=== PATIENT | male | born 1975 | race Caucasian/White ===

== ENCOUNTER 2019-07-23 16:06 | Emergency (ER) | payer BC ==
[~2019-07-23] VITALS: Ht 185.4 cm; Wt 72.6 kg
[2019-07-23] MEDS ORDERED: KEFLEX500 MG PO (17:39)
[2019-07-23] MEDS ORDERED: NORCO 7.5-3251 EACH PO (17:39)
[2019-07-23] MEDS ORDERED: ONDANSETRON ODT8 MG PO (17:39)
== END 2019-07-23 17:58 | disposition home or self-care (01) ==
LOC: ED 16:06
DX: K61.1 Rectal abscess (principal); B34.9 Viral infection, unspecified
CPT/HCPCS: 46040; 85025; 99284-25; A9270; J1170; J2405; J3010; J7030

== ENCOUNTER 2022-09-29 09:34 | Inpatient (IN) | payer BC ==
[~2022-09-29] VITALS: Ht 188 cm; Wt 85.0 kg
[~2022-09-29 09:34] MED LIST: KEFLEX500 MG PO; NORCO 7.5-3251 EACH PO; ONDANSETRON ODT8 MG PO
[2022-09-29 12:00] VITALS: BP 121/70
--- NOTE | 2022-09-29 12:00 | NUR ---
Patient brought up from the ER to Med surg for a CT scan that showed "acute appendicitis without evidence of rupture." Patient has IV fluids going, pain controlled at 4/10. Patient also has antibiotics running(flagyl) once this is done we will start the next one. is in room with patient and goes by Lilibeth. Patients jeans were removed and patient is in gown. IV dressing WNL and fluids running with no complications. will be in to evaluate patient later and advise of plan.
--- NOTE | 2022-09-29 12:40 | NUR ---
Patient pain has started to increase rapidly. Patient is unable to get comfortable. Patient needed to get up to the restroom. Patient able to urinate. IV pain medication given. Pain 9/10. Patient holding RLQ. Warm pack applied to area and very helpful.
--- NOTE | 2022-09-29 13:14 | NUR ---
INTO SEE PATIENT, PATIENT RESTING IN BED. SPOKE WITH PATIENT BRANDEN WHO IS AT THE BEDSIDE. NO CASE MANAGEMENT NEEDS AT THIS TIME. PATIENT WILL DISCHARGE TO HOME WHEN STABLE.
--- NOTE | 2022-09-29 13:29 | NUR ---
Patient now has Cefepime running over 30 minutes per order. Patient has D5LR hanging and ready to go after antibiotic done. Patient now sleeping comfortably since recieving his pain medication. at bedside. Regular respirations noted.
--- NOTE | 2022-09-29 14:39 | NUR ---
Patient currently asleep on his left side. is gone and went to get some stuff for patient and get her kids.
--- NOTE | 2022-09-29 14:53 | NUR ---
Med rec completed.
--- NOTE | 2022-09-29 15:01 | NUR ---
Patient awake and would like more pain medications. See eMar for medication. Patient also given a warm pack again as he feels this is very helpful. Denies nausea.
--- NOTE | 2022-09-29 16:09 | NUR ---
PLATE MILL MILL HAND IN ROOM WITH NURSE PATIENT GETTING SURGICAL WIPE DOWN. SURGICAL PRE OP CHECK LIST DONE.
--- NOTE | 2022-09-29 16:59 | NUR ---
AROUND 1600 PATIENT'S HELPED ME WIPE HIM DOWN FOR SURGERY. PUT NEW GOWN ON AND SCDS.
[2022-09-29 17:21] VITALS: BP 128/74
--- NOTE | 2022-09-29 17:21 | NUR ---
was just in to visit patient and advised patient he will get the team together and get ready for surgery.
--- NOTE | 2022-09-29 17:24 | NUR ---
Patient UA sample sent to lab by ALBERTO wynne.
--- NOTE | 2022-09-29 18:15 | NUR ---
Patient just left for surgery.
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
--- NOTE | 2022-09-29 20:39 | NUR ---
09/29/222038 Andino,Irene Santos 2021: PATIENT ARRIVED WTIH ORAL AIRWAY IN PLACE. ASLEEP. 2029: PATIENT SLEEPING. UNABLE TO AROUSE WITH VOICE AND LIGHT TOUCH. PATIENT EXCHANGING AIR ADEQUATELY WITH ORAL AIRWAY IN PLACE. 2035: PATIENT CONTINUES TO SLEEP. DOES NOT WAKE TO VOICE AND TOUCH. ORAL AIRWAY REMAINS IN PLACE.
[2022-09-29 21:05] VITALS: BP 113/70
[2022-09-29 22:12] VITALS: BP 109/62
[2022-09-29 23:04] VITALS: BP 103/61
[2022-09-30] VITALS (7 sets, daily range): BP systolic 101–122; BP diastolic 58–77
--- NOTE | 2022-09-30 06:24 | NUR ---
PT RESTED SOME DURING THE SHIFT. PT RECEIEVED TORADOL ONCE DURING THE SHIFT. PT DENIED ANY N/V. IVF INFUSING PER ORDER. PT VOIDED. PT TOLERATING CLEAR LIQUIDS. VSS. SAFETY PRECAUTIONS MAINTAINED. CALL LIGHT WITHIN REACH. WILL CONTINUE TO MONITOR.
--- NOTE | 2022-09-30 07:15 | NUR ---
Recieved report from records officer nurse. Patient was currently just given pain medication. Patient given fresh water. Call light within reach. Patient on clears currently. Denies any other needs at this time.
--- NOTE | 2022-09-30 08:09 | NUR ---
PATIENT RESTING IN BED, ANTIBIOTICS STARTED AND MORNING MEDICATIONS GIVEN. PATIENT HAS CLEAR LIQUID BREAKFAST AT BEDSIDE THAT HE IS WORKING ON. PAIN LEVEL IS CURRENTLY 2/10. DENIES ANY OTHER CARES AT THIS TIME. CALL LIGHT WITHIN REACH.
--- NOTE | 2022-09-30 08:38 | OR ---
[facility] [address] [place], [place] [address] Signed DATE OF OPERATION: 09/29/2022 SURGEON: Hakeem Salgado MD PREOPERATIVE DIAGNOSIS: Acute appendicitis. POSTOPERATIVE DIAGNOSIS: Acute necrotic appendicitis. PROCEDURE: Laparoscopic converted to open appendectomy. ESTIMATED BLOOD LOSS: Minimal. FINDINGS: Reji had omentum and the cecum densely adherent to the black necrotic appendix. We quickly realized this was not going to separate with our laparoscopic instruments. We therefore converted to an open appendectomy through a periumbilical incision. INDICATIONS: Reji is a 47-year-old gentleman, otherwise quite healthy and at his ideal body weight. For at least a couple of days, he had periumbilical abdominal pain and then localized to the right lower quadrant. He had significant nausea and vomiting, was quite dehydrated. He came to the emergency room for evaluation. He had localized peritonitis in his right lower quadrant. His white count was elevated at 18,000. The rest of the labs were unremarkable, except his BUN was up a little bit at 25 and his creatinine was up at 1.91. A CT scan of the abdomen and pelvis showed an inflamed thickened appendix at 1.4 cm in diameter. He had periappendiceal inflammation as well. He had received IV fluids, antibiotics and pain control in the emergency room. He was admitted to my service as a local general surgeon. I had met with Reji in his hospital room. I brought a brochure on the appendix, so he could review that when he was feeling better. We discussed the above findings. We discussed the location and function of the appendix. We discussed laparoscopic versus open appendectomy. He understands there is risk including, but not limited to bleeding, infection, scarring, change in contour of the skin, damage to bowel, appendiceal stump leak, postoperative intraabdominal abscess, incisional hernias and other unforeseen comorbidities. He is aware that we have to do open appendectomies 3% of the time. We had reviewed the expected intraop and postop course. He had expressed understanding and wished to proceed. Electronically Signed By: HAKEEM SALGADO MD 09/30/22 0838 PATIENT NAME: REJI MCFARLANE OPERATIVE REPORT DATE OF : 79 REPORT #: [id number] PHYSICIAN: HAKEEM SALGADO MD PCP: NO PRIMARY CARE PHYSICIAN REPORT IS CONFIDENTIAL AND NOT TO BE RELEASED WITHOUT AUTHORIZATION [facility] [address] [place], [place] [address] Signed DESCRIPTION OF PROCEDURE: Reji was taken into our operating room and placed in the supine position under general endotracheal tube anesthesia. He was already on preoperative antibiotics along with subcutaneous Lovenox. SCDs were in place. A Fuentes catheter was inserted with return of moderately dark, but clean urine without difficulty. He had been prepped and draped in the usual sterile fashion. We could feel the mass over the area of the appendix once he was pharmacologically paralyzed. We placed our trocar above the umbilicus through a vertical incision. We could see the mass with the omentum over this area. We placed a 5 mm suprapubic trocar. With our blunt grasper, we spent just a minute or two and we could see the significant inflammatory changes not only with the omentum, but also with the cecum and part of the proximal right colon as well. We simply could not separate that tissue whatsoever. We therefore elected to convert to open. We just extended incision down and around the umbilicus. We entered the abdomen with the help of the cautery. With the help of our nurse, we were able to quickly assess the cecum and appendix. It took just a few minutes to break that loose with our fingertips. We found his black necrotic appendix underneath the omentum. There was some fluid in that area. We went ahead and irrigated and suctioned that out. We secured the base of the appendix next to the cecum with a Pean clamp and an 0 Vicryl tie. The appendiceal stump was lightly cauterized. Fortunately, the mesoappendix was not particularly broad and we were able to come across it with one p.r.n. clamp. We secured that with an 0 Vicryl suture as well. The appendix was then passed off the field. We irrigated the area once again and suctioned out until clear. The bowel was returned to its position and omentum was placed over the bowel and the cecum. We then closed the midline fascia with interrupted #1 [id number] PDS sutures. Local anesthetic was injected in the abdominal wall. The wound had been irrigated until clear. We injected some additional local in his skin along the edge of the incision. We brought the dermis back together with interrupted 3-0 subcuticular Monocryl sutures including the 5 mm suprapubic trocar site. We then reapproximated the skin with interrupted kandy. Dry gauze and tape were then applied. His Fuentes catheter was removed without difficulty. He was weaned from his anesthesia, extubated in the OR, and taken to recovery room in stable condition. Hakeem Salgado MD ALB/MODL /[id number] Electronically Signed By: HAKEEM SALGADO MD 09/30/22 0838 PATIENT NAME: REJI MCFARLANE OPERATIVE REPORT DATE OF : 79 REPORT #: [id number] PHYSICIAN: HAKEEM SALGADO MD PCP: NO PRIMARY CARE PHYSICIAN REPORT IS CONFIDENTIAL AND NOT TO BE RELEASED WITHOUT AUTHORIZATION [address] [address] Signed cc: Patient Chart Hakeem Salgado MD Copies: HAKEEM SALGADO MD ~ Electronically Signed By: HAKEEM SALGADO MD 09/30/22 0838 PATIENT NAME: REJI MCFARLANE OPERATIVE REPORT DATE OF : 79 REPORT #: [id number] PHYSICIAN: HAKEEM SALGADO MD PCP: NO PRIMARY CARE PHYSICIAN REPORT IS CONFIDENTIAL AND NOT TO BE RELEASED WITHOUT AUTHORIZATION
--- NOTE | 2022-09-30 09:25 | NUR ---
Phone call to pharmacy. Patient has had back to back antibiotics. Called to see if this nurse could run maxipime and sodium phosphate together to help keep the medications on time as they are only 45 minutes apart but maxipime is 4 hour infusion. Per Chester in pharmacy this nurse can not run them together but advised ok to run maxipime in over 30 minutes.
--- NOTE | 2022-09-30 09:34 | NUR ---
Patient up and walking with and student nurse down and back on the med surg floor. Tolerating well, no complications. C/o just feeling sore. Pt also recently up to urinate.
--- NOTE | 2022-09-30 09:51 | NUR ---
CONNECTED WITH PT HE AMBULATED IN HALLWAY WITH SN AND FAMILY IN TOW. PT SLOW BUT STEADY USING HIS FWW. GAVE ENCOURAGEMENT WILL FOLLOW
--- NOTE | 2022-09-30 10:36 | NUR ---
IN TO TALK TO PATIENT. DR. JOSEPH ADVISED THIS NURSE HE WILL REMOVE THE DRESSING AND PATIENT CAN SHOWER TODAY. ANTIBIOTICS RUNNING. PATINET GIVEN 2 NORCO FOR PAIN TO SEE HOW HE TOLERATES TAKING ORAL PAIN MEDICATIONS.
--- NOTE | 2022-09-30 12:16 | NUR ---
Patient currently sleeping on his right side. Regular respirations noted. in room with patient.
--- NOTE | 2022-09-30 12:56 | NUR ---
Patient awake. Advised this nurse this is the first time he woke up and was not in worse pain. Patient given ice pack to apply to abdomen. Patient would like to wake up a little bit and then get in the shower. Antibiotics running.
--- NOTE | 2022-09-30 13:51 | NUR ---
Patient up and getting into shower. IV has been SL and covered and antibiotics are stopped at this time. is in room and will help patient. Towels, wash cloth, shampoo given. Patient will call using his call light when out to start antibiotics again.
--- NOTE | 2022-09-30 16:33 | NUR ---
Patient up and walked the long loop around [facility] with no complications. Steady on feet, used a walker to be safe as patient was worried as he was a little lightheaded when he first started to walk.
--- NOTE | 2022-09-30 18:20 | NUR ---
Family at bedside with patient. Vitals taken. Patient denies pain medications at this time and would like to wait until after dinner.
--- NOTE | 2022-09-30 19:20 | NUR ---
REPORT RECEIVED FROM THE DAY NURSE. PT RESTING IN BED. PT'S FAMILY AT BEDSIDE. SAFETY PRECAUTIONS MAINTAINED. CALL LIGHT WIHTIN REACH. WILL CONTINUE TO MONITOR.
[2022-10-01 04:59] VITALS: BP 123/77
--- NOTE | 2022-10-01 06:01 | NUR ---
PT RESTED WELL DURING THE SHIFT. DILAUDID GIVEN ONCE FOR PAIN, NORCO ALSO GIVEN FOR FOR. IVF INFUSING PER ORDER. IV ABX GIVEN. GOOD OUT PUT NOTED. ICE PACK APPLIED TO ABDOMEN. PT ABLE TO TOLERATE SOME PO FLUID INTAKE. SAFETY PRECAUTIONS MAINTAINED. CALL LIGHT WITHIN REACH. WILL CONTINUE TO MONITOR.
--- NOTE | 2022-10-01 07:20 | NUR ---
RECIEVED MORNING SHIFT REPORT. PT AWAKE IN BED. REPORTS WANTING TO WALK. THIS RN WALKED MS GREEN WITH PT. PT TOLERATED WELL DENIED DIZZINESS. BACK IN BED, ICE CHIPS PROVIDED, CALL LIGHT IN REACH. DENIES FURTHER NEEDS AT THIS TIME.
--- NOTE | 2022-10-01 09:15 | NUR ---
MORNING ASSESSMENT COMPLETE. PT RESTING IN BED, STATES PAIN IS TOLERABLE AT THIS TIME, WORSENS WITH MOVEMENT. PT STATES HE IS ABLE TO PASS LITTLE GAS. BOWEL TONES ACTIVE IN ALL QUADRANTS. FIRM, TENDER WITH TOUCH. MIDLINE OPEN TO AIR, STAPLE INTACT, BRUISING NOTED AROUND MIDLINE. DENIES FURTHER NEEDS. CALL LIGHT IN REACH
[2022-10-01 10:00] VITALS: BP 121/75
--- NOTE | 2022-10-01 10:14 | NUR ---
PT REFUSED BREAKFAST. STATES WILL BE HERE SOON BRINGING BROTH. DENIES ANY NEEDS. CALL LIGHT IN REACH
--- NOTE | 2022-10-01 11:51 | NUR ---
PT COMPLAINS OF NAUSEA, PRN ZOFRAN ADMINSTERED. PAIN TOLERABLE AT THIS TIME DENIES NEED FOR PAIN MEDICATION. CALL LIGHT IN REACH.
--- NOTE | 2022-10-01 13:15 | NUR ---
PT CALLED, PAIN 7/10 AND CONTIUNED TO FEEL NAUSEOUS. HE STATED THAT HE FEELS UNCOMFORTABLE. CEFEPIME IS ADMINSTERING AT THIS TIME, PT STATED HE FELT THE SAME THIS AM DURING SHIFT CHANGE WHEN MORNING DOSE OF THIS ABX WAS INFUSING. PT APPEARS TO HAVE MINOR REDDNESS UNDER LEFT CHEST, DENIES ITCHING, BUT UNABLE TO DISCRIBE THE FEELING. AYAH RN IN ROOM TO ASSESS. PHARMACY CALLED TO VERIFY, RASHI STATED TO CONTINUE TO MONITOR. PRN DILUDID AND COMPAZINE ADMINSTERED (PER EMAR). EXPLAINED TO PT AND IF FEELINGS ARE WORSE TO CALL. CALL LIGHT IN REACH. DENIES FURTHER NEEDS.
--- NOTE | 2022-10-01 14:20 | NUR ---
pt walking hallway with , states pain and nausea is still present but tolerable.
[2022-10-01 16:05] VITALS: BP 130/84
--- NOTE | 2022-10-01 16:16 | NUR ---
AFTERNOON ASSESSMENT COMPLETE. NO NEW CHANGES. PT REFUSED TO EAT LUNCH DUE TO NAUSEA. PAIN LEVEL 7/10 AND NAUSEOUS, PRN PAIN AND ANTINAUSEA MED GIVEN (PER EMAR). PT STATES ONCE NAUSEA SUBSIDES HE WILL TRY AND EAT THE BROTH HIS BROUGHT. PT WAS UP TO THE BATHROOM W/O DIFFICULTY. PT STATED HE IS PASSING GAS. CALL LIGHT IN REACH.
--- NOTE | 2022-10-01 16:46 | NUR ---
PT INFORMED THIS RN OF PT REPORTS OF "CLEAR" STOOL. IN ROOM, PT HAD INCONTINENT BROWN LIQUID BOWEL MOVEMENT. UP TO RESTROOM AND TO SHOWER. EDUCATED PT ON IMPORTANCE OF INFORMING NJURSING STAFF OF BOWEL MOVEMENTS AND FLATUS. PT AND VERBALIZED UNDERSTANDING. IV COVERED, GIVEN TOWELS AND WASH CLOTHS FOR SHOWER. TO ASSIST. PT AND DENY FURTHER NEEDS AT THIS TIME.
[2022-10-01 17:50] VITALS: BP 118/74
--- NOTE | 2022-10-01 19:23 | NUR ---
REPORT RECEIVED FROM DAY SHIFT RN. PT LYING IN BED ALERT AND ORIENTED. C/O DIZZINESS AFTER RETURNING FROM BR. FRESH ICE PACK AND WATER PROVIDED. NO FURTHER NEEDS AT THIS TIME. WHITE BOARD UPDATED. CALL LIGHT IN REACH.
[2022-10-01 20:05] VITALS: BP 126/83
--- NOTE | 2022-10-01 20:28 | NUR ---
PT REPORTS NAUSEA AND ABD PAIN 5/10. PRN FOR PAIN AND N/V ADMIN PER EMAR. PT C/O DIZZINESS, BEING HOT/FLUSHED, AND OVERALL "FEELING TERRIBLE." PT/ BELIEVE IT IS RELATED TO IV ABX. NO OBVIOUS S/SX OF ABX REACTION. VSS. NOTIFIED. NEW TELEPHONE ORDERS RECEIVED VERIFIED WITH READBACK METHOD. EVENING ASSESSMENT COMPLETE. ABD DISTENDED AND FIRM. BOWEL TONES HYPOACTIVE. MIDLINE ABD INCISION WITH DOLORES INTACT. BRUISING NOTED. NO REDNESS OR DRAINAGE. PT DENIES FLATUS BUT HAS HAD LIQUID BM. NO FURTHER NEEDS AT THIS TIME. CALL LIGHT IN REACH.
--- NOTE | 2022-10-01 23:03 | NUR ---
PT RESTING IN BED WITH EYES CLOSED. RESPIRATIONS EVEN. CALL LIGHT IN REACH.
--- NOTE | 2022-10-01 23:33 | NUR ---
CALL LIGHT ANSWERED. PT UP TO BR TO VOID AND HAVE LIQUID GREEN BM. PT INCONTINENT OF LIQUID BM WELL. ABLE TO DO OWN TRACE CARE. CLEAN LINENS PROVIDED. BACK TO BED, DAY WELL. REPORTS SLIGHT NAUSEA. DOES NOT WANT PRN FOR N/V AT THIS TIME. PRN FOR ABD PAIN ADMIN WITH JELLO. NEW BAG IVF INFUSING WNL. NO FURTHER NEEDS.
--- NOTE | 2022-10-02 00:02 | NUR ---
PT UP TO BR TO HAVE LIQUID GREEN BM. BACK TO BED, DAY WELL. DENIES NEEDS.
--- NOTE | 2022-10-02 02:36 | NUR ---
PT RESTING WITH EYES CLOSED IN BED. HOB ELEVATED. RESPIRATIONS EVEN. CALL LIGHT IN REACH.
--- NOTE | 2022-10-02 04:02 | NUR ---
CALL LIGHT ANSWERED. PT REPORTS NAUSEA. PRN FOR N/V ADMIN PER EMAR. PT REPORTS PAIN IS TOLERABLE. ASSESSMENT UNCHANGED. PT HAD TWO LARGE LIQUID DARK GREEN BM. FRESH ICE PACK AND WATER PROVIDED. NO FURTHER NEEDS.
[2022-10-02 05:21] VITALS: BP 137/81
--- NOTE | 2022-10-02 05:26 | NUR ---
VS AND I&O OBTAINED. PT UP TO BR TO HAVE LARGE LIQUID DARK GREEN BM. BACK TO BED. REPORTS NAUSEA, DECLINES PRN FOR N/V AT THIS TIME. ABD PAIN TOLERABLE. ICE CHIPS PROVIDED. NO FURTHER NEEDS.
--- NOTE | 2022-10-02 07:05 | NUR ---
RECIEVED SHIFT REPORT. PT AWAKE IN BED. CALL LIGHT IN REACH
--- NOTE | 2022-10-02 07:11 | NUR ---
PT REQUESTED TO GO FOR A WALK. PT STATED HE TASTE METAL IN HIS MOUTH. PT DENIES DRINKING ANYTHING THAT COULD BE THE CAUSE. REASSURED WILL MENTION CONCERNS TO DR JOSEPH.
--- NOTE | 2022-10-02 09:37 | NUR ---
MORNING ASSESSMENT COMPLETE. PT SITTING IN BED, AWAKE. COMPLAINS OF 5/10 ABD PAIN, AND NAUSEA. PRN PAIN AND ANTINAUSEA MEDICATION ADMIN (PER EMAR). PT CONIUNES TO HAVE LOOSE STOOLS. BOWEL TONES ACTIVE BILAT UPPER, HYPOACTIVE BILAT LOWER. TENDER WITH TOUCH. BRUSING NOTED AROUND SURIGAL SITE. DOLORES REMAIN INTACT. DENIES FURTHER NEEDS AT THIS TIME. CALL LIGHT IN REACH.
[2022-10-02 10:13] VITALS: BP 144/90
--- NOTE | 2022-10-02 10:44 | NUR ---
IN ROOM, PT RATE BACK PAIN 3/10, TOLERABLE. DENIES FURTHER NEEDS AT THIS TIME. CALL LIGHT IN REACH. REMAINS NAUSEOUS BUT AWARE OF PRN MEDICATION SCHEDULE.
--- NOTE | 2022-10-02 11:35 | NUR ---
PT WALKING HALLWAY WITH .
--- NOTE | 2022-10-02 12:54 | NUR ---
PT RESTING COMFORTABLY IN BED, DENIES DISCOMFORT AT THIS TIME. CALL LIGHT IN REACH.
[2022-10-02 13:46] VITALS: BP 128/87
--- NOTE | 2022-10-02 15:50 | NUR ---
AFTERNOON ASSESSMENT COMPLETE. NO NEW CHANGES. AT BEDSIDE. BALBINA POON ADMINSTERED PAIN MEDS. CALL LIGHT IN REACH.
--- NOTE | 2022-10-02 16:27 | NUR ---
PT RESTING IN BED, EYES CLOSED, BREATHING EVEN AND UNLABORED. AT BEDSIDE. CALL LIGHT IN REACH.
[2022-10-02 18:56] VITALS: BP 129/80
--- NOTE | 2022-10-02 19:32 | NUR ---
REPORT RECEIVED FROM DAY SHIFT RN. PT LYING IN BED ALERT AND ORIENTED. REPORTS ABD PAIN AND NAUSEA. PRN FOR N/V AND PAIN ADMIN PER ORDER. NO FURTHER NEEDS. WHITE BOARD UPDATED. CALL LIGHT IN REACH.
[2022-10-02 19:55] VITALS: BP 130/85
--- NOTE | 2022-10-02 20:09 | NUR ---
EVENING ASSESSMENT COMPLETE. PT REPORTS ABD PAIN IMPROVED AND SLIGHT NAUSEA. MIDLINE ABD INCISION WITH DOLORES INTACT. BRUISING NOTED. NO REDNESS OR DRAINAGE NOTED. BOWEL TONES HYPOACTIVE. ABD SOFT AND DISTENDED. PT REPORTS FLATUS. ICE PACK PROVIDED FOR INCISION. IVF INFUSING WNL. PT DENIES QUESTIONS OR CONCERNS. CALL LIGHT IN REACH.
--- NOTE | 2022-10-02 22:04 | NUR ---
IV ABX INFUSING PER ORDER. PT C/O NAUSEA. PRN FOR N/V ADMIN PER EMAR. UP TO BR INDEPENDENTLY TO VOID 150 ML YELLOW URINE. DAY WELL. NO FURTHER NEEDS.
--- NOTE | 2022-10-03 00:15 | NUR ---
PT WITH EYES CLOSED RESTING IN BED. HOB ELEVATED. RESPIRATIONS EVEN. CALL LIGHT IN REACH.
--- NOTE | 2022-10-03 02:07 | NUR ---
DEPUTY SHERIFF TO ROOM FOR IV PUMP ALARMING. PT REPORTS PAIN TO ABD AND BACK. RATES PAIN 2/10. REQUESTS PRN, ADMINISTERED, SEE EMAR. PT DENIES FURTHER NEEDS AT THIS TIME. CALL LIGHT IN REACH.
[2022-10-03 05:55] VITALS: BP 134/89
--- NOTE | 2022-10-03 06:05 | NUR ---
PT UP AMB IN ROOM. REPORTS HE FEELS BETTER THIS AM. VS AND I&O OBTAINED. PT REPORTS SLIGHT NAUSEA. PRN FOR N/V ADMIN PER EMAR. REPORTS PAIN IS TOLERABLE. IV ABX INFUSING PER ORDER. PT REPORTS ONE LIQUID BM THIS SHIFT. REPORTS FLATUS. MIDLINE WITH DOLORES INTACT. ABD DISTENDED AND SOFT. BT ACTIVE. PT AMB IN GREEN AT THIS TIME.
--- NOTE | 2022-10-03 07:28 | NUR ---
PATIENT SITTING UP IN CHAIR, NO DISTRESS. PATIENT RESTING, EYES CLOSED, RESPIRATIONS EVEN AND NON LABORED. IV FLUIDS INFUSING PER PROVIDER ORDER. CALL LIGHT WITHIN REACH.
--- NOTE | 2022-10-03 08:49 | NUR ---
Patient up and walking, Doctor was in room, board was updated, nothing else to report at this time.
[2022-10-03 09:16] VITALS: BP 133/86
[2022-10-03] MEDS ORDERED: HYDROCODON-ACE1 EA10 PO (09:17)
[2022-10-03] MEDS ORDERED: AUGMENTIN 500-1 EACH PO (09:19)
[2022-10-03] MEDS ORDERED: K-TAB ER20 MEQ PO (09:20)
--- NOTE | 2022-10-04 12:59 | PATH ---
[facility] [address] [place], [place] [address] Signed SPECIMEN(S): A APPENDIX SPECIMEN SOURCE: A. APPENDIX CLINICAL HISTORY: Acute appendicitis. FINAL PATHOLOGIC DIAGNOSIS: Appendix, appendectomy: - Acute suppurative appendicitis, periappendicitis, and serositis. - Mucosal necrosis. JVR:mariposa:C2NR MICROSCOPIC EXAMINATION: Histologic sections of all submitted blocks are examined by light microscopy. These findings, together with the gross examination, support the pathologic diagnosis. GROSS DESCRIPTION: The specimen, labeled and designated "Herman, appendix," is received in formalin and consists of Specimen: Appendix with mesoappendix. Dimensions: 7.2 x 2.8 x 1.3 cm. Serosa: Red-brown, roughened. Defect: Pinpoint disruption, inked blue. Inking: Staple line is inked black. Mucosa: Red-brown. Fecalith: Entire lumen contains soft fecal material. Additional: None. Convenience Store Clerk sections are submitted in (A1). AC (under the direct supervision of a pathologist) The Gross Description was prepared using a voice recognition system. The report was reviewed for accuracy; however, sound-alike word errors, addition and/or deletions may occur. If there is any question about this report, please contact Client Services. PERFORMING LABORATORY: The technical component was performed by [facility], [address] [place] [id number] (CLIA# [id number]). Professional interpretation was performed by [facility] [place], PATIENT NAME: DAVID MCFARLANE PATHOLOGY DATE OF : 79 REPORT #: [id number] PHYSICIAN: FELIPE PATHOLOGY PCP: NO PRIMARY CARE PHYSICIAN REPORT IS CONFIDENTIAL AND NOT TO BE RELEASED WITHOUT AUTHORIZATION [facility] [address] [place], [place] [address] Signed [facility] [address], [place] [address] (CLIA#: [id number]). Diagnostician: Edwin Caal MD Pathologist Electronically Signed 10/04/2022 Copies: ~ PATIENT NAME: DAVID MCFARLANE PATHOLOGY DATE OF : 79 REPORT #: [id number] PHYSICIAN: FELIPE PATHOLOGY PCP: NO PRIMARY CARE PHYSICIAN REPORT IS CONFIDENTIAL AND NOT TO BE RELEASED WITHOUT AUTHORIZATION
--- NOTE | 2022-10-15 06:08 | DS ---
[facility] [address], [place] [address] Signed ADMISSION DATE: 09/29/2022 DISCHARGE DATE: 10/03/2022 FINAL DIAGNOSIS: Black necrotic appendicitis. PROCEDURES: 1. Laparoscopic converted to open appendectomy. 2. CT scan of the abdomen and pelvis. HISTORY OF PRESENT ILLNESS: Reji is a 47-year-old gentleman, otherwise healthy who probably for several weeks was having generalized abdominal pain that finally localized to the right lower quadrant. He has had significant nausea and vomiting and dehydration. In fact his mouth was like cotton and his BUN and creatinine are actually elevated. His finally was able to convince him to come to the emergency room. He had localized peritonitis in the right lower quadrant. His white count was elevated at 18,000. A CT scan showed his inflamed appendix at 1.4 cm in diameter without obvious fluid collection. He had periappendiceal inflammation. In the emergency room, he was given cefepime and Flagyl and IV fluids and pain control. I have been asked to admit him as a general surgeon on-call. HOSPITAL COURSE: I met with Reji early in the morning and reviewed the above findings with him. I gave him a brochure on the appendix. He understands the location and function of the appendix along with the difference between laparoscopic and open cholecystectomy. I had warned Reji that 3% of patients need an open appendectomy and he might fall into that category. We took him to surgery that same day and sure enough we had to convert from laparoscopic to an open appendectomy through a periumbilical midline incision. He had a black necrotic appendix covered by his omentum. Thankfully, the small bowel was not involved. The cecum and small segment of the proximal right colon was inflamed. There was some turbid fluid, but no obvious abscess. There was no abscess cavity. Therefore, no drain was left. He rapidly improved with defervescence of his fever spikes and his tachycardia. With IV fluids, his BUN and creatinine returned to normal. He was kept on IV antibiotics. He thought the cefepime was causing him some nausea. Although it might have been from his ileus. He later complained of a metallic taste in his mouth, but he thinks it was from the container he brought from home that is lined with metal. We changed the cefepime out for Levaquin. We then changed the Levaquin and Flagyl out for Zosyn. He seemed to tolerate that well. Consequently, we will be sending him home on some Augmentin. As expected his potassium was running low and we have placed that, but it is still a little low. We will go ahead and give him some potassium at home as well. His magnesium was low and it corrected nicely with IV magnesium. At this point, he has Electronically Signed By: HAKEEM JOSEPH MD 10/15/22 0608 PATIENT NAME: REJI MCFARLANE DISCHARGE SUMMARY DATE OF : 79 REPORT #: [id number] PHYSICIAN: HAKEEM JOSEPH MD PCP: NO PRIMARY CARE PHYSICIAN REPORT IS CONFIDENTIAL AND NOT TO BE RELEASED WITHOUT AUTHORIZATION [address] [address] Signed had liquid diet and flatus for two days. His abdomen is a little distended, but it is soft and nontender. He has had no nausea or vomiting. He has tolerated a full liquid diet quite nicely. He is urinating well. His incision is also healing well without any local signs or symptoms of infection with the kandy in place. Due to his progress, he is going to be discharged to home with his family. DISCHARGE PLANS AND MEDICATIONS: Reji will be discharged to home with a prescription for [place] 5/325 one tablet p.o. q.6 hours p.r.n. for severe postoperative pain, dispense 15 tablets with no refills. He can use Tylenol, ibuprofen or Aleve as needed for zgte-[id number] postoperative pain. This can be purchased [id number]. We will give him Augmentin 500 mg one tablet p.o. b.i.d., dispense 6 tablets with no refills. We will give him potassium chloride 20 mEq one tablet p.o. b.i.d., dispense 10 tablets with no refills. He takes no chronic medications. We have asked him to follow a soft diet for a few days until he is feeling better, then advance as tolerated. He is welcome to perform his activities of daily living including walking up and down stairs and showering and bathing as usual as he has done here in the hospital. He is not to do any heavy pushing, pulling, or lifting over about 20 pounds. 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 He said his work restrictions are quite light. He said he might work intermittently since I will be out of town for a couple of weeks. In that regard, he is going to call my office and talk to my electromedical equipment technician about having his kandy removed. He may or may not need to have his wound evaluated by a physician before she is able to take the kandy out. Of course, Dr. Solomon is the other general surgeon in [facility] and we do cover each other while we are gone. Otherwise, I will see Reji when I get back in 3 to 4 weeks in my office. He has expressed understanding and agrees with the above plan. Reji also told me that his and children went to see Dr. Jones as their primary care provider. She is now moved out of town. Consequently, we will send a copy of this to her old group here in [place], [place]. Reji is expressed understanding and agrees with the above plan. Hakeem Joseph MD ALB/PAL /[id number] cc: Kanu Webster MD Electronically Signed By: HAKEEM JOSEPH MD 10/15/22 0608 PATIENT NAME: REJI MCFARLANE DISCHARGE SUMMARY DATE OF : 79 REPORT #: [id number] PHYSICIAN: HAKEEM JOSEPH MD PCP: NO PRIMARY CARE PHYSICIAN REPORT IS CONFIDENTIAL AND NOT TO BE RELEASED WITHOUT AUTHORIZATION [facility] [address] [place] [address] Signed Hakeem Joseph MD Copies: KANU WEBSTER MD, ANDREW L MD ~ Electronically Signed By: HAKEEM JOSEPH MD 10/15/22 0608 PATIENT NAME: REJI MCFARLANE DISCHARGE SUMMARY DATE OF : 79 REPORT #: [id number] PHYSICIAN: HAKEEM JOSEPH MD PCP: NO PRIMARY CARE PHYSICIAN REPORT IS CONFIDENTIAL AND NOT TO BE RELEASED WITHOUT AUTHORIZATION
== END 2022-10-03 10:58 | disposition home or self-care (01) | DRG 343 ==
LOC: ED 09:34 → MS 09:36
PROVIDERS: ADMIT Colon & Rectal Surgery; ATTEND Colon & Rectal Surgery
PROC: 0DTJ0ZZ Resection of Appendix, Open Approach (ICD-10-PCS; principal; 2022-09-29 18:00)
PROC: 0WJG4ZZ Inspection of Peritoneal Cavity, Percutaneous Endoscopic Approach (ICD-10-PCS; 2022-09-29 18:00)
DX: K35.31 Acute appendicitis with localized peritonitis and gangrene, without perforation (principal); E87.6 Hypokalemia; E83.39 Other disorders of phosphorus metabolism; R19.7 Diarrhea, unspecified; Z98.818 Other dental procedure status; Z87.81 Personal history of (healed) traumatic fracture; Z53.31 Laparoscopic surgical procedure converted to open procedure
CPT/HCPCS: 00840; 36415; 74177; 80048; 80053; 81003; 83690; 83735; 84100; 85025; 96365; 96367; 96372; 96375; 96376; 99285-25; A9270; C9113; G0378; J0131; J0692; J0780; J1100; J1170; J1650; J1885; J2001; J2270; J2405; J2543; J2704; J3010; J3480; J3490; J7030; J7060; J7121; Q9967

== ENCOUNTER 2022-10-06 01:37 | Inpatient (IN) | payer BC ==
[~2022-10-06] VITALS: Ht 188 cm; Wt 85.5 kg
[~2022-10-06 01:37] MED LIST changes: +AUGMENTIN 500-1 EACH PO; +HYDROCODON-ACE1 EA10 PO; +K-TAB ER20 MEQ PO
--- OUTSIDE RECORDS SUMMARY | 2022-10-06 01:38 | XMS ---
PreManage Notification: DAVID MCFARLANE Security Collaborative Physician Events No recent Security Events currently on file CRITERIA MET - [facility] - [facility] - 2 Visits in 30 Days CARE PROVIDERS There are no care providers on record at this time. [facility] has no Care Guidelines for this patient. [facility] MO[facility] NOTE: Visits indicate total known visits. ED/UCC VISIT TRACKING (12 MO.) 10/06/2022 01:37 [facility] TYPE: Emergency COMPLAINT: - ABD PAIN 09/29/2022 09:35 [facility] TYPE: Emergency COMPLAINT: - ABDOMINAL PAIN INPATIENT VISIT TRACKING (12 MO.) 09/30/2022 17:21 [facility] TYPE: Medical Surgical COMPLAINT: - APPENDICITIS DIAGNOSES: - Acute appendicitis with localized peritonitis and gangrene, without perforation - Hypokalemia - Other dental procedure status - Other disorders of phosphorus metabolism - Personal history of (healed) traumatic fracture - Right lower quadrant pain [email or web address]
[2022-10-06] MEDS ORDERED: HYDROMORPHONE HC4 MG PO (01:48)
[2022-10-06 04:42] VITALS: BP 140/83
--- NOTE | 2022-10-06 06:30 | NUR ---
Pt was admitted to [facility], Pt has abd tenderness at incision site. Pt has been have liquid dark green stool every 15 min. Pt had some pain and nausea, gave fentynal and zofran. Pt is NPO. Independent in the room. IV fluids and antibiotics running.
--- NOTE | 2022-10-06 07:33 | NUR ---
REPORT RECEIVED FROM BALBINA SHORE. PT UP TO RESTROOM, INDEPENDANT AND STEADY ON FEET. PT REPORTS "CONSTANT" GREEN DIARRHEA. ABDOMEN REMAINS DISTENDED WITH MIDLINE INCISION WELL APROXIMATED. BRUISING SEEN ALL AROUND INCISION. PHARMACY CALLED AND STATES MEROPENEM NEEDS TO BE RETIMED AND NOT TO GIVE 0600 DOSE. NO ADDITIONAL REQUESTS OR COMPLAINTS AT THIS TIME. BED RAILS UP. CALL LIGHT WITHIN REACH.
--- NOTE | 2022-10-06 08:37 | NUR ---
PT STATED "I HAVE BEEN UP TO THE BATHROOM ABOUT EVERY 15 MINUTES WITH DIARRHEA." PT WAS GIVEN A HEAT PACK TO HELP WITH STOMACH PAIN. VERBALIZED UNDERSTANDING TO CALL IF STOMACH ISSUES GET WORSE. CALL LIGHT WITHIN REACH.
--- NOTE | 2022-10-06 08:50 | NUR ---
MORNING ASSESSMENT AND MEDICAITON DUE. PT RESTING IN BED, WATCHING TV. UP TO RESTROOM X2 DURING THIS ASSESSMENT, STEADY ON FEET, INDEPENDANT WITH AMBULATION. GREEN LIQUID DIARRHEA NOTED WITH BOTH RESTROOM VISITS. PT DENIES PAIN EXCEPT FOR "CRAMPING RIGHT BEFORE I NEED TO GO." PT DENIES NEED FOR PAIN MEDICATION AT THIS TIME. PT ALERT AND OREINTED TO ALL. LUGN SOUNDS CLEAR. HEART TONES REGULAR. MIDLINE INCISION REMAINS C/D/I WITH EDGES WELL APROXIMATED AND DOLORES INTACT. BRUISING NOTED ~4CM ARROUND INCISION SITE. ABDOMEN REMAINS MODERATLY DISTENDED, PT REPORTS "MAYBE A LITTLE BETTER." BOWEL TONES HYPOACTIVE. ABDOMEN SOFT BUT TENDER TO TOUCH WITH PALPATION. REBOUND PAIN IN RIGHT UPPER QUDARANT SEEN. PT REPORTS HE FEELS DEHYDRATED. EDUCATION DONE WITH PT REGARDING NPO STATUS AND IV HYDRATION. EXTENSIVE EDUCATION DONE WITH PT REGARDING PLAN OF CARE AND TREATEMENTS. NO ADDITIONAL REQUESTS OR COMPLAINTS. CALL LIGHT WITHIN REACH. BED RAILS UP.
--- NOTE | 2022-10-06 08:53 | NUR ---
MED REC COMPLETE
[2022-10-06 09:09] VITALS: BP 140/81
--- NOTE | 2022-10-06 09:18 | NUR ---
DR. MATOS TO BEDSIDE FOR ROUNDS. PT UPDATED ON PLAN OF CARE. NEW ORDERS GIVEN FOR SOSA CATHTER AND KUB. ORDERS ENTERED, REPEAT BACK PERFORMED. PT UP TO RESTROOM. PTS ARRIVED TO BEDSIDE AND UPDATED ON PLAN OF CARE. PT VERBALIZES UNDERSTANDING AND STATES HIS QUESTIONS HAVE BEEN ANSWERED.
--- NOTE | 2022-10-06 09:45 | NUR ---
INTO ROOM, PATIENT UP TO RESTROOM. PATIENT BRANDEN AT THE BEDSIDE. [place] NO DME OR FINACNIAL NEEDS AT THIS TIME. PATIENT WAS RECENTLY HERE FOR AN OPEN APPY. PATIENTS BRANDEN CONFIRMS PATIENT DOES NOT HAVE PCP AT THIS TIME. SHE STATES THEIR PROVIDER RECENTLY LEFT. PCP LIST PROVIDED TO BOTH THE PATIENT AND BRANDEN. THEY WOULD LIKE TO DISCUSS THEIR OPTIONS AND FOLLOW UP TOMORROW. NO OTHER CONCERNS AT THIS TIME. WILL CHECK IN WITH PATIENT TOMORROW.
--- NOTE | 2022-10-06 09:56 | NUR ---
tHIS RN TO ROOM TO PLACE SOSA CATHETER. PT REPORTS HE HAS VOIDED. 225ML CONCENTRATED YELLOW URINE NOTED IN URINAL. BLADDER SCANNED WITH 13 ML REMAINING IN BLADDER. CHG WIPES PROVIDED. PT PERFORMING WIPE DOWN INDEPENDANTLY, ASSTANCE IF NEEDED FROM . PRE PROCEEDURE CHECK LIST COMPLETE. DR. VAZQUEZ (PTS CLOSE FAMILY FRIEND) TO BEDSIDE AND UPDATED ON PT STATUS AND PLAN OF CARE PER PT REQUEST. SOSA CATHETER HELD AT THIS TIME PENDING UPDATE TO DR MATOS REGARDING PTS URINATION. NO ADDITIONAL REQUESTS OR COMPLAINTS. CALL LIGHT WITHIN REACH. BED RAILS UP.
--- NOTE | 2022-10-06 10:14 | NUR ---
DR. MATOS CALLED AND UPDATED REGARDING PTS VOIDING STATUS. ORDERS GIVEN TO HOLD SOSA CATHTER. SOSA ORDER DC'D. REPEAT BACK PERFORMED. PT AND FAMILY UPDATED. NO ADDITIONAL REQUESTS OR COMPLAINTS. CALL LIGHT WITHIN REACH.
--- NOTE | 2022-10-06 10:50 | NUR ---
DR MATOS CALLED TO CLARIFY POTASSIUM ORDERS, STATES TO GIVE 90MEQ OF POSTASSIUM PER PHARMACY RECCOMENDATIONS AND TO STOP LR WITH 20K STARTING LR (PER ORDER). RASHI IN PHARMACY CALLED AND STATES HE IS ADJUSTING ORDERS. PT UPDATED ON PLAN OF CARE AND REASON FOR DELAY OF SURGERY. PT AND FAMILY VERBALIZE UNDERSTANDING AND STATE THEIR QUESTIONS HAVE BEEN ANSWERED.
--- NOTE | 2022-10-06 11:36 | NUR ---
MEDICATION DUE. THIS RN TO ROOM. PT REPORTS FEELING "FLUSHED" AND STATES HE HAS 5/10 PAIN IN HIS ABDOMEN NOW. SEE MAR FOR MEDICAITON GIVEN. TEMPERATURE ASSESSED, 98.9 AT THIS TIME. POTASSIUM INUFSION AND NEW IV FLUIDS STARTED. PT DENIES ADDITIONAL REQEUSTS OR COMPLAINTS. CALL LIGHT WITHIN REACH. BED RAILS UP.
--- NOTE | 2022-10-06 12:38 | NUR ---
THIS RN TO ROOM TO CHECK ON PT. PT REPROTS HE WAS NAPPING AND THAT PAIN HAS RESOLVED. PT DENIES NAUSEA. NO ADDITIONAL REQUESTS OR COMPLAINTS. PT ENCORUAGED TO REST, NAP TIME SIGN PLACED ON THE DOOR. IV REMAINS WNL WITH NO S/S OF PHLEBITIS SEEN. CALL LIGHT WITHIN REACH. BED RAILS UP.
--- NOTE | 2022-10-06 13:22 | NUR ---
PT ALERT, ORIENTED AND WAITING FOR SURGERY TO TAKE PLACE LATER TODAY. PT SEEMS TO BE INFORMED, DID SAY PAIN AT 5, LET RN PARKER KNOW. SHE WILL FOLLOW UP. PT STATED HE NEEDED TO USE BR, GAVE BLESSING AND WILL FOLLOW
[2022-10-06 13:44] VITALS: BP 137/85
--- NOTE | 2022-10-06 14:12 | NUR ---
AFTERNOON ASSESSMENT AND MEDICATION DUE. PT CALL LIGHT ON. PT REPORTS HE WOULD LIKE TO DISCUSS PAIN MANAGEMENT. EDUCATION REGARDING PAIN DONE WITH PT. PT VERABALIZES UNDERSTANDING AND REQUESTS ADDITIONAL PAIN MEDICATION. SEE MAR FOR MEDICATION GIVEN. 1ST BAG OF IV POTASSIUM NEARLY COMPLETE. CALL RECEIVED FROM ANDERSON HYDROCHLORIC AREA SUPERVISOR WHO STATES DR. MATOS WOULD LIKE BMP LAB DRAW NOW. 5ML LAB DRAW AFTER 10ML NS FLUSH, 5 MINUTE WAIT TIME, AND 10ML WASTE FROM LEFT FORARM IV SITE. LABS SENT TO LAB PER PROTOCOL. PT REMAINS ALERT AND ORIENTED TO ALL. ABDOMEN REMAINS MODERATLY DISTENDED, SOFT BUT SORE WITH PALPATION, MILD REBOUND PAIN IN RIGHT LOWER AND UPPER QUADRANT. BOWEL TONES RARE. HEART TONES REGULAR, LUNG SOUNDS CLEAR. PT REPORTS ONGOING MILD NAUSEA, DECLINES MEDICATION. MID LINE INCISION UNCHNAGED, EDGES WELL APROXIMATED, DOLORES INTACT, BRUSING NOTED ~4CM ARROUND MIDLINE INCISION. NO ADDITIONAL NEEDS AT THIS TIME. PT AND FAMILY VERBALIZE UNDERSTANDING OF PLAN OF CARE. CALL LIGHT WITHIN REACH. BED RAILS UP.
--- NOTE | 2022-10-06 14:43 | NUR ---
Spoke with pt and updated, I can possibly get him a follow up appt with the Physician clinic in 7-10 days. They will determine at this visit if they can take him as a pt. to establish care. He would like to proceed with this. I will fax his chart to Papito at the Physician clinic. We discussed there is a 3 month wait at all the clinics to establish care. They lost their MD at [facility] when she moved. They did not have a provider to cover Reji and his . They would prefer to use another clinic. They have the list of clinics in their room. Chart faxed with request for a follow up appt in 7-10 days.
--- NOTE | 2022-10-06 15:34 | NUR ---
Chart scanned to Papito Vyas at [facility] to request fu appt and appt to establish care. I spoke with pt and he would like to have a FU visit and will determine after the visit if he would like to establish care with the provider. He is aware it could take up to 3 months to establish care.
--- NOTE | 2022-10-06 15:37 | NUR ---
THIS RN TO ROOM TO CHECK ON PT. PT REPORTS FEELING FLUSHED AFTER MORPHINE ADMINISTRATION. PT DENIES PAIN AND NAUSEA. TEMPERATURE REMAINS WNL. PT DENIES ADDITIONAL REQUESTS OR COMPLAINTS. UPDATED ON PLAN OF CARE. CALL LIGHT WITHIN REACH. BED RAILS UP. FAMIY AT BEDSIDE.
--- NOTE | 2022-10-06 16:32 | NUR ---
IN TO CHECK ON PT. REPORTS HE IS WAITING FOR SURGERY, DENIES OTHER NEEDS.
--- NOTE | 2022-10-06 16:50 | NUR ---
REPORT GIVEN TO SUSANNA MACHINE SETTER AUTOMATIC. PT UP TO RESTROOM, NO ASSISTANCE NEEDED. PT AND FAMILY STATE THEIR QUESTIONS HAVE BEEN ANSWERED. IV ABX AND POTASSIUM REMAIN ON PUMP AT THIS TIME. PT TO OR. NO ADDITIONAL REQUESTS OR COMPLAINTS.
--- NOTE | 2022-10-06 19:16 | NUR ---
PT HERE FOR COMPLICATIONS RELATED TO APPY THAT WAS PERFORMED LAST MONDAY. PT NPO THIS SHIFT, IV FLUIDS INFUSING. PT UP TO RESTROOM INDEPENDANTLY, STEADY ON FEET. PRN PAIN MEDICATION GIVEN FOR 5/10 PAIN IN ABDOMEN, FREQUENT CRAMPING. FREQUENT GREEN LIQUID BOWEL MOVEMENTS SEEN, MD AWARE. POTASSIUM REPLACEMENTS GIVEN WITH FOLLOW UP LABS PERFORMED. MIDLINE INCISION REMAINS C/D/I WITH EDGES WELL APROXIMATED AND DOLORES INTACT, BRUISING ALL AROUND MIDLINE INCISION SEEN. PT IN SURGERY AT THIS TIME. PT USESE CALL LIGHT AND MAKES NEEDS KNOWN.
--- NOTE | 2022-10-06 20:57 | NUR ---
DR MATOS AT RN STATION, PER EMAR. pt HAS 1 BAG OF 30MEQ POTASSIUM RIDER REMAINING TO GIVE, LAST POTASSIUM DRAW WAS THIS AFTERNOON AT APPROX 1430 WITH A 3.6 RESULT.MD AWARE. VERBAL ORDER READ BACK TO GIVE LAST 30MEQ POTASSIUM RIDER, PER MD NO NEED TO RECHECK POTASSIUM BEFORE ADMINISTERING. PRIMARY RN STEFFI ALSO AT RN STATION AND AWARE.
[2022-10-06 21:30] VITALS: BP 128/72
--- NOTE | 2022-10-06 21:30 | NUR ---
pt ARRIVED TO MEDSUR FLOOR AT THIS TIME, VSS. pt ON RA. RR EVEN AND UNLABORED. NO DISTRESS NOTED. SCD'S ALREADY IN PLACE. PRIMARY RN STEFFI IN ROOM TO RECEIVE BEDSIDE REPORT. CALL LIGHT IN REACH.
--- NOTE | 2022-10-06 21:40 | NUR ---
PT RETURNED FROM PACU. REPORT RECEIVED FROM POLISHER DIAL. MIDLINE DRSG CDI, ABDOMINAL BINDER IN PLACE. JANET DRAIN INTACT. NG TUBE IN PLACE AND MINIMAL OUTPUT NOTED WITH LOW INTERMITTENT SUCTION. IVF RESTARTED PER ORDER. IV POTASSIUM AND ABX ALSO GIVEN. VSS. PT STATES THAT PAIN IS STILL 9/10. WILL MONITOR AND TREAT NEEDED. SOSA CATHETER ALSO IN PLACE WITH OUTPUT NOTED. PT ON RA. SAFETY PRECAUTIONS MAINTAINED. CALL LIGHT WITHIN REACH. WILL CONTINEU TO MONITOR.
--- NOTE | 2022-10-06 21:58 | NUR ---
10/06/222157 Sheets,Roro 2004 PT ARRIVED TO PACU ON RA, PT ASLEEP AND REACTIVE TO TACTILE STIMULI. PT NODS "YES" TO PAIN. RESP EVEN AND UNLABORED. 2010 YOUTH DIRECTOR GAVE PAIN MEDICATION PER YOUTH DIRECTOR BLUE SHEET. NG TO LOW INTERMITTENT SUCTION, GREEN FLUID NOTED. [id number] PAIN MEDICATION GIVEN PER EMAR, PT DENIES ANY CHANGE IN PAIN AND O2 SAT REMAINS LOW 90S. PT REPORTS TIGHTNESS IN ABD, EDUCAITON GIVEN. PT GRIMACING OFF AND ON. 2100 YOUTH DIRECTOR CALLED AND UNDATED, NEW ORDERS GIVEN. 2109 PAIN MEDICATION GIVEN. PT RPEORTS PAIN IS GETTING "A LITTLE" BETTER. RATES PAIN 01/08. 2124 PT ASLEEP AND SNORING NOTED. O2 REMAINS ABOVE 90%. 2129 PT RETURNED TO ROOM. 2139 REPORT TO MED-MEDICAL LABORATORY TECHNICIANS AND BED PLUGGED IN. CALL LIGHT IN PT HAND. PT REPORTS CONCERNS OF PAIN CONTROL DURING THE NIGHT AND MED-MEDICAL LABORATORY TECHNICIANS AWARE.
[2022-10-06 22:32] VITALS: BP 127/72
[2022-10-06 23:30] VITALS: BP 125/76
[2022-10-07] VITALS (7 sets, daily range): BP systolic 114–145; BP diastolic 73–85
--- NOTE | 2022-10-07 06:30 | NUR ---
PT RESTED WELL THROUGHOUT THE SHIFT. NG TUBE WITH MINIMAL OUTPUT. JANET DRAIN WITH NO OUTPUT NOTED. SOSA DRAINING WELL PER GRAVITY. IVF INFUSING PER ORDER. VSS. PAIN MANAGED WITH DILAUDID, MORPHINE, TORADOL, AND IV TYLENOL. NO NAUSEA NOTED. PT WALKED IN HALLWAY THIS AM. SAFETY MAINTAINED. CALL LIGHT WITHIN REACH. WILL CONTINUE TO MONITOR.
--- NOTE | 2022-10-07 07:16 | NUR ---
REPORT RECEIVED FROM BALBINA RICHARDSON. PT RESTING IN BED, DEBRA REPORTS PT WAS JUST UP TO AMBULATE X3 LAPS IN GREEN. PT REPORTS 3/10 PAIN IN ABDOMEN THAT IS WELL CONTROLLED AT THIS TIME. NG TUBE TO LOW INTERMITTANT WALL SUCTION. ABDOMINAL BINDER IN PLACE WITH SEROUS ANGUINOUS FLUID SEEN IN JANET DRAIN. NO ADDITIONAL REQUESTS OR COMPLAINTS AT THIS TIME. CALL LIGHT WITHIN REACH. BED RAILS UP.
--- NOTE | 2022-10-07 07:35 | NUR ---
MORNING ASSESSMENT AND MEDICATION DUE. PT RESTING IN BED, PT VERY HESITANT TO MOVE RELATED TO NG TUE. EDUCATION DONE WITH PT REGARDING NG TUBE. PT VERBALIZES UNDERSTANDING AND BEGINGS TALKING AND MOVEING A BIT MORE FREELY. PT CONTINUES TO BE ANXIOUS AT TIMES, ANXIETY IMPROVES WITH THERAPUTIC COMMUNICAITON AND EDUCATION. PT EDUCATTED REGARDING SUGIACL FINDINGS AND UPDATED ON PLAN OF CARE. PT ENCORUAGED TO AMBULATE, PURPOSE OF NG TUBE, SOSA CATHETER, JANET DRAIN AND ABDOMINAL BINDER EXPLAINED TO PT. PT REPEATS BACK UNDERSTANDING. PT ALSO EDUCATED REGARDING OPIOID MEDICATIONS. PT REPORTS ONGOING 3/10 ABDOMINAL PAIN, WORSE WITH ANY ACTIVITY. PT DENIES NEED FOR PAIN MEDICATION AT THIS TIME. PT DENIES NAUSEA. HEART TONES REGULAR, LUNG SOUNDS CLEAR. ABDOMEN REMAINS SOFT, TENDER TO TOUCH. MIDLINE INCISION DRESSING C/D/I WITH NO DRAINAGE NOTED. STERI STRIPS VISIABLE UNDER DRESSING. ABDOMINAL BINDER IN PLACE. TYMPANIC BOWEL TONES HEARD IN RIGHT UPPER QUADRANT. BOWEL TONES OTHERWISE RARE. JANET DRAIN SHOWS SMALL AMOUNTS OF SEROUS ANGUINOU DRAINAGE, WNL. SOSA CATHTER DRAINING CLEAR YELLOW URINE TO GRAVITY. QUANTITY SUFFICIENT. NG TUBE REMAINS TO LOW INTERMITTANT SUCTION, SMALL AMOUNTS OF GREEN DRAINAGESEEN IN CANISTER. PT DENIES ADDITIONAL REQUESTS OR COMPLAINTS. CALL LIGHT WITHIN REACH. BED RAILS UP. PT ENCOURAGED TO CALL WHEN HE IS READY TO AMBULATE AGAIN.
--- NOTE | 2022-10-07 08:10 | NUR ---
NG TUBE CLAMPED AND PT UP TO AMBULATE 9+ LAPS IN GREEN WAY WITH STAND BY ASSIST. PT USING FRONT WHEEL WALKER FOR SECURITY.
--- NOTE | 2022-10-07 09:47 | NUR ---
THIS RN TO ROOM TO CHECK ON PT. NG TUBE REATTACHED TO LOW INTERMITTANT WALL SUCTION. SMALL AMOUNTS OF GREEN FLUID RETURN SEEN. PT DENIES NASUEA WHILE NG TUBE WAS CLAMPED. PT REPORTS 3/10 PAIN IN ABDOMEN AT THIS TIME AND REQUESTS PAIN MEDICATION. SEE MAR FOR MEDICATION GIVEN. PT UPDATING FAMILY BY PHONE. PT REQUESTS ASSISTANCE WITH MORNING CARES, AUDIO VIDEO REPAIRER TO BEDSIDE. PT DENIES ADDITIONAL REQUESTS OR COMPLAINTS. CALL LIGHT WITHIN REACH. BED RAILS UP.
--- NOTE | 2022-10-07 10:30 | NUR ---
ASSISTANT SECRETARY STATES PTS CALL LIGHT WAS ON AND PT IS REQUESTING PAIN MEDICATIONS. THIS RN TO ROOM WITH PAIN MEDICAITON AND PT STATES HE NO LONGER WANTS MEDICATION. PT REPORTS HE HAD A "SPIKE OF PAIN, LIKE CRAMPING." THAT HAS RESOLVED. PT REPORTS PAIN IS CURRENTLY 3/10 AND TOLEARBLE. PT DENIES NAUSEA. NO ADDITIONAL REQUSETS OR COMPLAINTS. CALL LIGHT WITHIN REACH. BED RAILS UP.
--- NOTE | 2022-10-07 11:15 | NUR ---
PT ALERT, ORIENTED AND SITTTING UP IN BED WITH TV ON. NGT IN PLACE FOLLOWING SURGERY FOR RESECTION. PT STATES HE FEELS MUCH BETTER, APPEARS TO BE COMING TO CHURCH ADMINISTRATOR WITH ALL THAT HAS HAPPENED. HAD TIME OF DEBRIEF, PT REQUESTED PRAYER AND THANKED ME FOR VISIT. WILL FOLLOW
--- NOTE | 2022-10-07 11:22 | NUR ---
THIS RN TO ROOM TO CHECK ON PT. PT REPORTS PAIN REMAINS WELL CONTROLLED AT 3/10 AND DENIES NEED FOR ADDITIONAL PAIN MEDICATION. PT DENIES NASUEA. PT REQUSTS THAT NG TUBE BE CLAMPED SO HE CAN WALK WITH HIS FAMILY. NG TUBE CLAMPED. VERY MINIMAL OUTPUT NOTED FROM NG TUBE, WILL DISCUSS WITH MD. PT DENIES ADDITIONAL REQUESTS OR COMPLAINTS. CALL LIGHT WITHIN REACH. BED RAILS UP.
--- NOTE | 2022-10-07 11:46 | NUR ---
PT CONTINUES WALKING IN GREEN WITH FAMILY. PT LAUGHING AND TELLING STORIES WITH FAMILY. DR. MATOS UPDATED ON PT STATUS, NG TUBE AND ASSESSMENT. DR. MATOS TO BEDSIDE FOR ROUNDS. ORDERS GIVEN FOR KUB, AND TO DC SOSA CATHETER, CEPACOL LOZANGES. ORDERS PLACED. REPEAT BACK PERFORMED. SOSA CATHETER DC'D PER PROTOCOL. PT TOLERATED WELL. PT AND FAMILY UPDATED ON PLAN OF CARE AND STATE THEIR QUESTIONS HAVE BEEN ANSWERED. EXTENSIVE EDUCATION DONE WITH FAMILY REGARDING PTS STATUS AND OR PROCEEDURES. X-RAY CALLED FOR IMAGING. NO ADDITIONAL REQUESTS OR COMPLAINTS.
--- NOTE | 2022-10-07 13:07 | NUR ---
AFTERNOON ASSESSMENT AND MEDICATION DUE. PT RESTING IN BED. PT REPORTS 5/10 PAIN IN ABDOMEN AND REQUESTS PAIN MEDICATION. SEE MAR FOR MEDICATION GIVEN. PT REMAINS ALERT AND OREINTED TO ALL. PT DENIES NAUSEA. SMALL AMOUNTS OF GREEN FLUID NOTED FROM NG TUBE ~10ML. NG TUBE REMAINS TO LOW INTERMITTANT SUCTION. ABDOMEN REMAINS MODERATLY DISTENDED, SOFT BUT TENDER TO TOUCH. BOWEL TONES HEARD IN LEFT LOWER QUADRANT. PT REPORTS HE CAN "FEEL THINGS MOVING IN THEIR." PT REPORTS HE IS NOT YET PASSING GAS. MID LINE INCISION WNL WITH DRESSING C/D/I, NO DRAINAGE NOTED. 60ML SEROUS ANGUINOUS FLUID REMOVED FROM JANET DRAIN, DRAIN STRIPPED. BRUSING REMAINS UNCHANGED AROUND ABDOMINAL MIDLINE SITE. PT REMAINS DUE TO VOID AFTER CATHERE REMOVAL. IV FLUIDS CONTINUE. HEART TONES REGULAR, LUNG SOUNDS CLEAR. PT DENIES ADDITIONAL REQUESTS OR COMPLAINTS. CALL LIGHT WITHIN REACH. BED RAILS UP.
--- NOTE | 2022-10-07 13:50 | NUR ---
MEDICATION DUE. THIS RN TO ROOM. PT RESTING WITH EYES CLOSED. PT AWAKENS TO MOVEMENT IN THE ROOM. PT REPORTS 3/10 PAIN THAT IS WELL CONTROLLED. PT DENIES NASUEA. PT REPORTS HE CAN "FEEL THE TUBE IN MY THROAT" WHICH IS "NOT PAINFUL, JUST BOTHERSOME." CEPACOLE [place] GIVEN. NO ADDITIONAL REQUESTS OR COMPLAINTS. PT DRIFTS BACK TO SLEEP. CALL LIGHT WITHIN REACH. BED RAILS UP.
--- NOTE | 2022-10-07 14:20 | NUR ---
ABHISHEK PITTMAN AT [facility] F/U APPT SCHEDULED WITH RK AARON 10/13/22 @ 2846. DISCHARGE PAPER UPDATED AND INFORMATION PASSED ON TO AYAH LOG INSPECTOR. IN TO ADVISE PATIENT, PATIENT SLEEPING. ASKED STAFF TO UPDATE PATIENT WHEN HE WAKES.
--- NOTE | 2022-10-07 14:57 | NUR ---
QUANTITY SURVEYOR STATES PT HAS AWAKENED AND IS "FREAKING OUT." THIS RN TO ROOM. PT STATES HE AWOKE FROM HIS NAP AND "MY HEART WAS RACING, AND I WAS SHAKING ALL OVER AND I'M SWEATY." PT STATES HE WAS FEELING CRAMPING PAIN AND IT "REALLY FREAKED ME OUT." PT REQUESTS THAT SOMEONE STAY WITH HIMS FOR A WHILE. THIS RN REMAINS A BEDSIDE FOR 15 MINUTES. PT CALMS. VITALS SIGNS STABLE. PT REPORTS "THE PAIN IS GONE" AND DENIES NEED FOR PAIN MEDICATION. PT DENEIS NASUEA. ABDOMEN REMAINS SOFT, BOWEL TONES ACTIVE ON RIGHT SIDE. DRESSING C/D/I. NO ADDITONAL REQUESTS OR COMPLAINTS. PT TAUGHT TO TAKE SLOW DEEP BREATHS IN OVER 10 SECONDS, HOLD HIS BREATH FOR 15-20 SECONDS, AND OUT THROUGH THE NOSE OVER 10 SECONDS. PT REPORTS BREATHING "HELPS." CALL LIGHT WITHIN REACH. BED RAILS UP. PT STATES HIS IS RETURNING "ARROUND 4"
--- NOTE | 2022-10-07 16:16 | NUR ---
THIS RN TO ROOM TO CHECK ON PT. PT REPORTS ANXIETY HAS IMPROVED. NG TUBE BANDAGE LOOSE AND SLIDING OFF THE NOSE. NEW BANDAGE PLACED PER PROTOCOL. PT REPORTS INTERMITTANT 4-5/10 CRAMPING PAIN IN ABDOMEN. TYELNOL NO LONGER ON THE MAR. PHARMACY CALLED AND STATES THEY WILL REVIEW PTS ELIGABILITY FOR ADDITIONAL TYLENOL. SEE MAR FOR MEDICATION GIVEN. PT CONTINUES TO ASK FREQUENT QUESTIONS, ANSWERS PROVIDED. NO ADDITIONAL NEEDS AT THIS TIME. CALL LIGHT WITHIN REACH. BED RAILS UP.
--- NOTE | 2022-10-07 16:28 | NUR ---
PT HERE FOR COMPLICATIONS RELATED TO APPY THAT WAS PERFORMED LAST MONDAY. PT NPO THIS SHIFT, IV FLUIDS INFUSING. NG TUBE IN PLACE AND TO LOW INTERMITTANT WALL SUCTION. CLAPMED FREQUENTLY FOR AMBULATION, PT TOLERATES WITHOUT NASUEA. PT IS NOT YET PASSING GAS. NO BOWEL MOVEMENT SEEN THIS SHIFT. BOWEL TONES IMPROVING. PT UP TO RESTROOM AND TO AMBULATE IN GREEN THIS SHIFT WITH STAND BY ASSIST AND ONE PERSON ASSIST FOR LINE AND TUBE MANAGEMENT. PRN PAIN MEDICATION GIVEN FOR PAIN IN ABDOMEN, FREQUENT CRAMPING. PT REMAINS OPIOID FREE SO FAR THIS SHIFT. MIDLINE INCISION REMAINS C/D/I WITH NO DRAINAGE NOTED ON DRESSING. ABDOMINAL BINDER IN PLACE, BRUISING ALL AROUND MIDLINE INCISION UNCHANGED. SOSA CATHETER DC'D. PT REMAINS DUT TO VOID AT THIS TIME. JANET DRAIN IN PLACE WITH SEROUS ANGUINOUS FLUID SEEN. PT USESE CALL LIGHT AND MAKES NEEDS KNOWN.
--- NOTE | 2022-10-07 17:10 | NUR ---
THIS RN TO ROOM TO CHECK ON PT. PT REPORST ONGOING INTERMITTANT CRAMPING PAIN AT 4-5/10. PT DENIES NEED FOR ADDITIONAL PAIN MEDICATION. PT UP TO AMBULATE IN GREEN, ASSISTED WITH LINES AND TUBE AND THEN AMBULATING INDEPENDANTLY. PT ENCORUAGED TO VOID WELL. STATES "I JUST ABOUT FEEL THE NEED TO GO." NO ADDITIONAL REQUESTS OR COMPLAINTS.
--- NOTE | 2022-10-07 17:28 | NUR ---
PT UP TO AMBLUATE AND STOPS THIS RN TO REPORT THAT HE WAS ABLE TO HAVE A "VERY TINY BOWEL MOVEMENT." ~10ML LOOSE GREEN BOWEL MOVEMENT SEEN IN TOILET. PT REPORTS HE WAS ALSO ABLE TO URINATE 175ML YELLOW URINE AND PASS SOME GAS. PT CONTINUES AMBULATING. REPORTS THAT PAIN IS IMPROVING. NO ADDITIONAL REQUESTS OR COMPLAINTS.
--- NOTE | 2022-10-07 18:42 | NUR ---
PT CALL LIGHT ON. PT ASKS IF HE CAN LEAVE NG TUBE CLAMPED TO AMBULATE MORE AD BRITTANY. PT DENIES NASUEA. NG TUBE REMAINS CLAMPED. PT UP TO RESTROOM AND HAS ADDITIONAL SMALL GREEN LOOSE BOWEL MOVEMENT. PT REPORTS PASSING GAS WELL. PT UP TO AMBULATE IN GREEN WITH SPOUSE. PT REPORTS PAIN IS WELL CONTROLLED. NO ADDITIONAL REQUESTS OR COMPLAINTS. CALL LIGHT WITHIN REACH.
--- NOTE | 2022-10-07 19:01 | OR ---
[facility] [address], [place] [address] Signed DATE OF OPERATION: 10/06/2022 SURGEON: Meredith Matos MD PREOPERATIVE DIAGNOSES: 1. History of necrotizing appendicitis status post open appendectomy one week ago (Dr. Hakeem Joseph). 2. Pelvic fluid collection and small bowel obstruction. POSTOPERATIVE DIAGNOSES: 1. Pelvic fluid collection with fibrinous peel of the cecum and terminal ileum with obstructive changes. 2. Low-grade small-bowel obstruction related to postoperative interloop adhesions. 3. Meckel diverticulum of ileum. PROCEDURE: 1. Exploration of abdomen with drainage of pelvic fluid collection. 2. Decompression of small bowel with lysis (blunt) of interloop adhesions. 3. Segmental small bowel resection with end-to-end anastomosis following resection of Meckel diverticulum. ANESTHESIA: General endotracheal, Nasir Bellamy, EDUCATIONAL TECHNOLOGY SPECIALIST and postoperative bilateral TAP blocks. INDICATION: This 47-year-old white man underwent difficult appendectomy a week ago by Dr. Hakeem Joseph, which included open appendectomy for what sounds like very advancing necrotic appendicitis. He was discharged home tolerating a liquid diet. He was discharged with oral antibiotics as well. I was called by his two days ago with complaints of increasing lower abdominal pain and having run out of his pain medication. His medications were renewed. He then presented to the emergency room today where he was evaluated by Dr. Brewer with significant abdominal pain, episodes of vomiting at least once, and a CT scan performed showing two distinct fluid collections, one through the small bowel, the other in the pelvis as well as dilated small bowel loops suggestive of small bowel obstruction. His white count was somewhat elevated. He did not appear systemically toxic. Given his previous findings of necrotizing appendicitis, the fluid collection is now a week from operation and findings suggestive of either pelvic abscess or other similar process. I have recommended laparotomy to remedy the problem. The patient and his understand Electronically Signed By: MEREDITH MATOS MD 10/07/22 1901 PATIENT NAME: DAVID MCFARLANE OPERATIVE REPORT DATE OF : 79 REPORT #: [id number] PHYSICIAN: MEREDITH MATOS MD PCP: NO PRIMARY CARE PHYSICIAN REPORT IS CONFIDENTIAL AND NOT TO BE RELEASED WITHOUT AUTHORIZATION [facility] [address], [place] [address] Signed the risk of bleeding, infection, need for additional procedures and so forth and wished to proceed. FINDINGS: There was ecchymosis of the abdominal wall related to prior laparotomy incision. There was no subcutaneous hematoma, however. The abdomen had two distinct fluid collections, which may or may not have been infected. They were not adrienne pus, however. One was in the deep pelvis, the other is within the mesentery of the small bowel. Dilated and markedly inflamed bowel loops were noted and some decompression with obstructive focus found at the terminal ileum. Fibrinous peel was noted in this area. There is no sign of enteric leak proper and certainly no cecal fistula. Noted in the ileum was a folded over Meckel diverticulum that was the same size as a typical appendix. It did appear to emanate from the antimesenteric side. More clearly, it was not truly antimesenteric and yet it was not on the mesenteric side. It was excised transversely, but the deserosalized segment of bowel upon mobilizing this suggested a safer approach to the segmental resection. On that basis segmental small bowel was undertaken with an end-to-end anastomosis. Complete decompression of the bowel was accomplished. The liver and gallbladder were palpably normal. At conclusion, a drain was left in the pelvis. Small bowel returned to natural anatomic configuration, fully decompressed. DESCRIPTION OF PROCEDURE: The patient was brought to the operating room, given a general endotracheal anesthetic. A Fuentes catheter was placed. Preoperative antibiotic meropenem had been given. Ultimately, a nasogastric tube was also placed. Clips from previous incision were removed and the abdomen was prepared with chlorhexidine solution and draped sterilely. An incision was made in the previous incision using a 15 blade. Interrupted sutures were noted, probably PDS. The abdomen was entered. There was no foul odor within the peritoneal cavity. Inflammatory fluid was noted. The incision was extended inferiorly and somewhat superiorly as the operation progressed as the bowel loops were quite dilated proximally suggestive of early small bowel obstruction. Interloop postoperative adhesions were broken down primarily with blunt dissection allowing for delivery of small bowel in segments. Within the depths of the pelvis was a fluid collection which was broken down and suctioned free. It did not have adrienne purulence, but there was inflammatory fluid and Gram stain cultures were obtained. The Gram stain showed white cells but no organisms. The small bowel was decompressed in the terminal ileum and a fibrinous peel was noted of the cecum and terminal ileum. The ileum was somewhat distorted and was essentially decompressed and likely forming a source of functional obstruction to the bowel. The small bowel was then freed from proximal to distal and then from distal to proximal. Noted on the ileum along this same axial direction as the ileum was an obvious diverticulum that was lengthy. It was the size of an appendix and was somewhat Electronically Signed By: MEREDITH MATOS MD 10/07/22 926 PATIENT NAME: DAVID MCAFRLANE ARMANDO OPERATIVE REPORT DATE OF : 79 REPORT #: [id number] PHYSICIAN: MEREDITH MATOS MD PCP: NO PRIMARY CARE PHYSICIAN REPORT IS CONFIDENTIAL AND NOT TO BE RELEASED WITHOUT AUTHORIZATION [facility] [address], [place] [address] Signed inflamed, though not perforated in any way. It was densely adherent to the small bowel and could easily be missed on inspection. It was freed from the small bowel and emanated not exactly from the antimesenteric side but rather in the midportion of the small bowel. Consideration was made this might represent an atypical enteric duplication. In any case, it was freed up completely, and using a NOHEMI stapling device, transected transversely to the small bowel lumen. Mobilization of this appendage from the small bowel did have some attendant deserosalization. Serosal reapproximation was deemed inadvisable and probably harmful as it appeared to narrow the lumen of the bowel in such a way that it would be more safe to simply segmentally resect that segment of bowel. On that basis, the mesentery corresponding to the resected Meckel's diverticulum was sequentially secured with hemostats. The vascular pedicles ligated with 0 silk ties. A NOHEMI stapling device was used to transect the ends of the bowel completely. An end-to-end enteroenterostomy was undertaken in a two-layer technique of interrupted 3-0 silk suture in the serosal layer and interrupted 3-0 Vicryl in the mucosal layer. Good patency to the anastomosis was noted. The mesenteric defect was secured with interrupted 3-0 silk suture. The small bowel was then milked from proximal to distal across the anastomosis showing good integrity to it and no sign of leakage or other problem. There was no impediment to flow enteric contents and air through that to the cecum itself. Irrigation was undertaken throughout the abdominal cavity. A 7 mm flat Simeon drain was passed through a right lower quadrant incision into the depths of the pelvis. The small bowel was returned to a natural anatomic configuration after irrigation and the omentum replaced over the abdominal contents. The midline fascia was reapproximated with running bidirectional #1 PDS suture. The subcutaneous tissue was irrigated and skin closed with a running subcuticular 3-0 Vicryl. Steri-Strips were applied as was Acticoat dressing. The drain was attached to bulb suction. The patient then underwent TAP blocks bilaterally by the coding assistant for postoperative analgesic benefit. Sponge, needle, and instrument counts were reported as correct x3. BLOOD LOSS: Was less than 50 mL in aggregate. Meredith Matos MD JM/MODL /[id number] Electronically Signed By: MEREDITH MATOS MD 10/07/22 1901 PATIENT NAME: DAVID MCFALRANE OPERATIVE REPORT DATE OF : 79 REPORT #: [id number] PHYSICIAN: MEREDITH MATOS MD PCP: NO PRIMARY CARE PHYSICIAN REPORT IS CONFIDENTIAL AND NOT TO BE RELEASED WITHOUT AUTHORIZATION [facility] [address] [place] [address] [place] [address] Signed cc: Hakeem Joseph MD Copies: HAKEEM JOSEPH MD ~ Electronically Signed By: MEREDITH MATOS MD 10/07/22 190 PATIENT NAME: DAVID MCFARLANE OPERATIVE REPORT DATE OF : 79 REPORT #: [id number] PHYSICIAN: MEREDITH MATOS MD PCP: NO PRIMARY CARE PHYSICIAN REPORT IS CONFIDENTIAL AND NOT TO BE RELEASED WITHOUT AUTHORIZATION
--- NOTE | 2022-10-07 19:01 | HP ---
[facility] [address] [place], [place] [address] Signed ADMISSION DATE: 10/06/2022 REASON FOR ADMISSION: Abdominal pain, fluid collection, recent open appendectomy. HISTORY OF PRESENT ILLNESS: This 47-year-old white man returns to the emergency room following a laparoscopic with conversion to open appendectomy performed by Dr. Hakeem Joseph on October 03, 2022. A "black necrotic appendix" was noted. The patient describes tolerating clear liquids when he left the hospital, but not really tolerating oral intake otherwise. I was called about two days ago from his saying that he needs additional pain medicine and wrote for Dilaudid 4 mg p.o. q.6 hours as needed. The patient presented to the emergency room this morning and was evaluated by Dr. Brumfield where he was found to be experiencing a significant right lower abdominal pain, feeling nauseated and not getting relief from pain medicine and unable really to tolerate oral intake. He has felt bloated and painful as well. A CT scan was obtained which showed inflammation of the ileum, associated diffuse ileus, liquid stool in the colon and a 4 cm rim enhancing fluid collection in the cul-de-sac and a 9 cm rim enhancing fluid collection of pelvic small bowel mesentery. He is admitted for further evaluation and care. He now feels about the same. He does have some hesitancy for urination. His labs at presentation include white count of 12.3, hematocrit 36.1 and platelets of 408,000. His potassium is low at 2.8, creatinine elevated at 1.10. His creatinine now is 2.9. REVIEW OF SYSTEMS: He denies any hematemesis or blood per rectum. He does have some hesitancy for urination. PHYSICAL EXAMINATION: GENERAL: This is a fit and healthy white man who does not look to be severely distressed actually. VITAL SIGNS: Temperature is 98.4, pulse is 80, blood pressure 140/81. NECK: Trachea is midline. CHEST: Shows normal respiratory excursion. Pulses regular. ABDOMEN: Has ecchymosis of the midline wound. There is no actual hematoma there, Electronically Signed By: MEREDITH MATOS MD 10/07/22 1901 PATIENT NAME: DAVID MCFARLANE HISTORY AND PHYSICAL DATE OF : 79 REPORT #: [id number] PHYSICIAN: MEREDITH MATOS MD PCP: NO PRIMARY CARE PHYSICIAN REPORT IS CONFIDENTIAL AND NOT TO BE RELEASED WITHOUT AUTHORIZATION [facility] [address] [place], [place] [address] Signed however. Palpation does reveal mild tenderness in the right lower abdomen. EXTREMITIES: Show no clubbing, cyanosis, or edema. LAB STUDIES: This morning show a white count of 12.0, hematocrit 35.3, platelets 425,000. Potassium is 2.9, creatinine better at 1.04, glucose 110. Liver enzymes are normal. ASSESSMENT: I reviewed the CT scan with the radiologist. Given the findings and operation and without placement of a drain at time of initial operation, there is a reasonable probability of development of abscess, enteric leak or something of that sort. On that basis, would recommend exploration of the abdomen through his midline incision, clearance of intra-abdominal fluid collections and placement of drains as appropriate. He will need to have potassium replacement therapy before that most likely, however. The risk of bleeding, infection, need for additional treatment including possible bowel resection was reviewed with the patient and his . They understand and agree. Meredith Matos MD JM/MODL /[id number] cc: Dr. Brissa Joseph MD Copies: HAKEEM JOSEPH MD ~ Electronically Signed By: MEREDITH MATOS MD 10/07/22 1901 PATIENT NAME: DAVID MCFARLANE HISTORY AND PHYSICAL DATE OF : 79 REPORT #: [id number] PHYSICIAN: MEREDITH MATOS MD PCP: NO PRIMARY CARE PHYSICIAN REPORT IS CONFIDENTIAL AND NOT TO BE RELEASED WITHOUT AUTHORIZATION
--- NOTE | 2022-10-07 19:35 | NUR ---
REPORT RECEIVED FROM DAY SHIFT RN. PT RESTING IN BED. PT'S SPOUSE AT BEDSIDE. NG TUBE CLAMPED CURRENTLY. PT AMBULATING FREQUENTLY. IVF INFUSING. SAFETY PRECAUTIONS MAINTAINED. CALL LIGHT WITHIN REACH. WILL CONTINUE TO MONITOR.
--- NOTE | 2022-10-07 21:10 | NUR ---
PT ASSESSED AND MEDICATIONS GIVEN. NG TUBE HOOKED BACK UP TO LOW INTERMITTENT SUCTION. VSS. IVF INFUSING PER ORDER. SAFETY PRECAUTIONS MAINTAINED. CALL LIGHT WITHIN REACH. WILL CONTINUE TO MONITOR.
--- NOTE | 2022-10-07 21:58 | NUR ---
call light answered, pt initially thought he needed to get up for a possible bm. this rn in room, pt then denied need stating, "i think it was just rumbling". in room, denies further needs or concerns. call light in reach.
--- NOTE | 2022-10-08 01:15 | NUR ---
PT ASSISTED UP TO BR PER MARK NEW MEDIA STRATEGIST, PT VOIDED, AND HAD LARGE SOFT GREEN COLOR SOFT STOOL, BACK TO BED, NG RETURNED TO WALL SX, PT RESTING WITH HOB ELEVATED AND WITHOUT OTHER REQUESTS.
--- NOTE | 2022-10-08 02:50 | NUR ---
RN CALLED TO ROOM FOR IV ALARM, ANTIBODICS COMPLETED PER LEFT UPPER ARM SITE, SL FLUSHES WELL, SITE INTACT, PT WITHOUT COMPLAINTS.
--- NOTE | 2022-10-08 04:40 | NUR ---
RN CALLED TO ROOM, PT REQUESTING PAIN MEDICATION, PT PREFERS NO MORPHINE AT THIS TIME, PT WOULD LIKE HIS TORODOL WHEN IT IS TIME, PT ASSISTED UP TO BR, GAIT STEADY, STATES HE VOIDED IN TOILET AND MISSED MEASURING, PT DESIRES TO SIT ON TOILET FOR A WHILE, DENIES DIZZINESS.
[2022-10-08 05:19] VITALS: BP 134/84
--- NOTE | 2022-10-08 06:16 | NUR ---
PT RESTED SOME DURING THE SHIFT. PAIN MANAGED WITH IV TYLENOL AND TORADOL. NO NARCOTICS WERE NEEDED THIS SHIFT. PT ABLE TO ABULATE TO BATHROOM. MANY BM'S NOTED. NG TUBE WITH 100ML OUTPUT AND JANET DRAIN 15ML NOTED. PT VOIDING. IVF INFUSING PER ORDER. IV ABX GIVEN. VSS. ABDOMINAL DRSG CDI. SAFETY PRECAUTIONS MAINTAINED. CALL LIGHT WITHIN REACH. WILL CONTINUE TO MONITOR.
--- NOTE | 2022-10-08 07:06 | NUR ---
REPORT RECEIVED FROM BALBINA RICHARDSON. PT UP TO RESTROOM. HAS AND ADDITIONAL MODERATE SIZED GREEN BOWEL MOVEMENT, LOOSE IN CONSISTANCY. PT REPORTS CRAMPING PAIN AT 6/10. PT APPEARS ANXIOUS AND IS PACING IN THE ROOM. PT STATES "i'M DOING MY BREATHING EXERCISES TO CALM DOWN." PT DENIES NAUSEA. NG TUBE REMAINS CLAMPED AT THIS TIME. NO ADDITIONAL REQUESTS OR COMPLAINTS. CALL LIGHT WITHIN REACH.
--- NOTE | 2022-10-08 07:39 | NUR ---
MORNING ASSESSMENT AND MEDICAITON DUE. PT BACK TO BED. RESTING IN SEMIFOWLER POSITION WITH HEAD OF BED AT 35 DEGREES. PT REPORTS 5/10 CRAMPING PAIN IN ABDOMEN, SEE MAR FOR MEDICATION GIVEN. PT REPORTS FEELING REALLY "TIRED AND WEAK" TODAY. PT ENCROUAGED TO REST. PT STATES HE WAS ABLE TO SLEEP "MOST OF THE NIGHT." REPORT STATES PT SLEPT ABOUT HALF THE NIGHT. PT STATES "I JUST CAN'T DO THINGS ON MY OWN TODAY." PT REQUESTS ASSISTANCE TO SANITIZE HANDS. TO MOVE WATER GLASS AND TO ADJUST PILLOWS. PT ENCOURAGED TO DO CARES FOR HIMSELF. PT ASSISTED WITH COMPLETING THESE CARES ON HIS OWN. PT ALERT AND OREINTED TO ALL. REMAINS INDEPENDANT IN THE ROOM, STEADY ON FEET. LUGN SOUNDS CLEAR. HEART TONES REGULAR. ABDOMEN REMAINS MODERATLY DISTENDED, SOFT BUT TENDER TO TOUCH. BOWEL TONES ACTIVE IN ALL QUADRANTS. NG TUBE REMAINS IN PLACE, CLAMPED AT THIS TIME TO ALLOW FOR MOBILITY. PT DENIES NAUSEA. SUCKING ON ICE CHIPS FOR COMFORT. MIDLINE INCISION DRESSING C/D/I WITH NO DRAINAGE NOTED. STERI STRIPS REMAIN INTACT UNDER DRESSING. BRUSING UNCHANGED AROUND INCISION SITE. JANET DRAIN EMPTIED OF 100ML SEROUS ANGUINOUS FLUID. EXTENSIVE EDUCATION DONE WITH PT REGARDING PLAN OF CARE AND WHAT TO EXPECT. PT VERBALIZES UNDERSTANDING AND STATES HIS QUESTIONS HAVE BEEN ANSWERED. I.S. PROVIDED. PT REACHES 1750-2500ML X5. NO ADDITIONAL REQUESTS OR COMPLAINTS. CALL LIGHT WITHIN REACH. BED RAILS UP.
[2022-10-08 09:20] VITALS: BP 140/89
--- NOTE | 2022-10-08 09:27 | NUR ---
THIS RN TO ROOM TO CHECK ON PT. PT CONTINUES TO REPORT WEAKNESS BUT STATES HE IS OTHERWISE COMFORTABLE. PT REPORTS INTERMITTANT 4/10 CRAMPING PAIN. PT DENIES NAUSEA. NG TUBE REMAINS CLAMPED FOR MOBILITY. PT DENIES ADDITIONAL REQUESTS OR COMPLAINTS. DEMONSTRATES USE OF I.S. REACHING 2500ML X5. CALL LIGHT WITHIN REACH. BED RAILS UP.
--- NOTE | 2022-10-08 10:20 | NUR ---
THIS RN TO ROOM TO CHECK ON PT. PT REPORTS HIS "ENERGY IS RETURNING." PT REPORTS INTERMITTANT 4/10 CRAMPING PAIN AND DENIES NEED FOR ADDITIONAL PAIN MEDICATION. NG TUBE REMAINS CLAMPED FOR MOBILITY. PT DENIES NASUEA. IV ABX COMPLETE. LEFT AC IV SITE SALINE LOCKED. FRESH ICE CHIPS PROVIDED. PT DENIES ADDITIONAL REQUESTS OR COMPLAINTS. CALL LIGHT WITHIN REACH. BED RAILS UP.
--- NOTE | 2022-10-08 10:43 | NUR ---
PT CALL LIGHT ON. PT REPORTS HE WAS UP TO THE RESTROOM. URINAL EMPTIED OF 125ML CLEAR YELLOW URINE, MUCH ADULT PSYCHIATRIST IN COLOR NOW. JANET DRAIN NOTED TO BE FULL OF SEROUS ANGUINOUG FLUID. PT EDUCATIONS DONE THIS MORNING REGARDING HOW TO EMPTY FLUID FROM JANET DRAIN. PT DEMONRSTRATES UNDERSTANDING BY EMPTYING JANET DRAIN NOW WITH STAND BY ASSIST. PT CONTINUES TO REPORT 4/10 INTERMITTANT CRAMPING PAIN. PT DENIES NEED FOR ADDITIONAL PAIN MEDICATION. LINENS CHANGED. NO ADDITIONAL REQUESTS OR COMPLAINTS. CALL LIGHT WITHIN REACH. BED RAILS UP.
--- NOTE | 2022-10-08 12:05 | NUR ---
THIS RN TO ROOM WITH DR. MATOS FOR ROUNDS. ORDERS GIVEN TO DC NG TUBE, DC'D PER PROTOCOL. CLOTH PROVIDED FOR PT TO WASH FACE. PT CONTINUES TO DENY NAUSEA. PT ADVANCED TO CLEAR LIQUID DIET. JUICE, JELLOW, BROTH AND ICE WATER PROVIDED. PT ENCORUAGED TO TAKE FLUIDS VERY SLOWLY, JUST SIPS AT A TIME. PT VERBALIZES UNDERSTANDING. PT EMPTIES HIS OWN JANET DRAIN WITH STAND BY ASSIST. 90ML SEROUS ANGUINOUS FLUID REMOVED. PT REPORTS PAIN REMAINS WELL CONTROLLED AT THIS TIME AND DENIES NEED FOR ADDITIONAL PAIN MEDICATIONS. NO ADDITIONAL REQUESTS OR COMPLAINTS. CALL LIGHT WITHIN REACH. PT UP TO RESTROOM, INDEPENDANT AND STEADY ON FEET.
--- NOTE | 2022-10-08 13:13 | NUR ---
AFTERNOON ASSESSMENT DUE. PT UP TO RESTROOM, INDEPENDANT AND STEADY ON FEET. PT VOIDS 325ML AND HAS AN ADDITIONAL MODERATE SIZED GREEN BOWEL MOVEMENT. TRACE CARE PER PT. PT BACK TO BED. PT REPORTS 7/10 CRAMPING PAIN IN ABDOMEN. SEE MAR FOR MEDICATION GIVEN. PT REPORTS "SLIGHT" NAUSEA WITH DRINKING PO FLUIDS. PT ALSO STATES "I'M VERY SUGESTABLE, IF SOMEONE SAYS NAUSEA I THINK, YEAH I GUESS I HAVE THAT." PT REMAINS ALERT AND OREINTED TO ALL. PT ENCOURAGED TO AMBLUATE TODAY. PT AGREES AFTER A NAP. ABDOMEN REMAINS SOFT BUT TENDER IN PLACED. JANET DRAIN CONTINUES PUTTING OUT SEROUS ANGUINOUS FLUID, PT EMPTIES JANET DRAIN WITH STAND BY ASSIST AT THIS TIME OF ADDITIONAL 40ML SEROUR ANGUINOUS FLUID. MID LINE INCISION C/D/I WITH NO DRAINAGE SEEN, STERI STRIPS APPERAT INTACT UNDER DRESSING. BOWEL TONES ACTIVE. DISTENTION IMPROVING, NOW MILD. PT DENEIS ADDITIONAL REQUESTS OR COMPLAINTS. CALL LIGHT WITHIN REACH. BED RAILS UP. PTS AT BEDSIDE.
[2022-10-08 13:16] VITALS: BP 145/83
--- NOTE | 2022-10-08 14:10 | NUR ---
MEDICATION DUE. PT RESTING IN BED, REPORTS HE HAD A SHORT NAP. PT ENCOURAGED TO AMBULATE. PT AGREES. MEDICATION GIVEN (SEE MAR). PT REPORTS 2/10 CRAMPING PAIN IN ABDOMENT HAT IS WELL COTNROLLED. PT DENIES NAUSEA. PT TAKING SIPS OF APPLE JUICE AND WATER. NO ADDITIONAL REQUESTS OR COMPLAINTS. PT UP TO AMBULATE WITH HIS . NO ASSISTANCE NEEDED.
--- NOTE | 2022-10-08 15:06 | NUR ---
THIS RN TO ROOM TO CHECK ON PT. PT RESTING IN BED. REPORTS HIS WALK WAS "SHORTER THAN I'D LIKE" BUT OTHERWISE FELT GOOD. PT STATES CRAMPING PAIN REMAINS WELL CONTROLLED AND DENIES NEED FOR ADDITIONAL PAIN MEDICATION. HAS TOLEARTED BITES OF JELLOW AND SIPS OF WATER AND JUICE. PT DENIES NAUSEA. NO ADDITIONAL REQUESTS OR COMPLAINTS. FAMILY AT BEDSIDE. CALL LIGHT WITHIN REACH.
--- NOTE | 2022-10-08 16:45 | NUR ---
PT UP TO AMBULATE IN GREEN. PT STOPS THIS RN AND ASKS FOR TYLENOL. THIS RN TO ROOM PT REPROTS 3/10 CRAMPING PAIN. SEE MAR FOR MEDICATION GIVEN. PT DENIES NAUSEA. PT ASKING ABOUT FOOD AND WHAT OTHER THINGS HE CAN HAVE TO EAT. CLEAR LIQUID VS FULL LIQUID DIET REVEIWED WITH PT. PT VERBALIZES UNDERSTANDING AND STATES HE DOES NOT YET WANT TO ADVANCE DIET. PTS BRINGING IN CLEAR LIQUIDS FOR PT PER HIS REQUEST. NO ADDITIONAL REQUESTS OR COMPLAINTS. CALL [facility] WITHIN REACH. BED RAILS UP.
--- NOTE | 2022-10-08 17:25 | NUR ---
THIS RN TO ROOM TO CHECK ON PT. PT RESTING IN BED. PT REPORTS ABDOMINAL PAIN/CRAMPING HAS IMPROVED, NOW 2-3. PT UP TO RESTROOM. INDEPENDANT. PT DENIES NAUSEA AND IS TOELRATING SIPS OF CLEAR LIQUIDS. CLEAR LIQUID TRAY DELIVERED FOR DINNER. PT DENIES ADDITIONAL REQUSETS OR COMPLAINTS. CALL LIGHT WITHIN REACH. BED RAILS UP. FAMILY AT BEDSIDE.
--- NOTE | 2022-10-08 17:41 | NUR ---
PT POST OP DAY 2 AFTER LAPAROTOMY FOR COMPLICATIONS AFTER APPENDECTOMY. PT ADVANCED TO CLEAR LIQUID DIET. TOELRATING WELL IV FLUIDS INFUSING. NG TUBE DC'D. BOWEL TONES ACTIVE. MULTIPLE LOOSE GREEN BOWEL MOVEMENTS SEEN THIS SHIFT. PT UP TO RESTROOM AND TO AMBULATE IN GREEN THIS SHIFT WITH STAND BY ASSIST. PRN PAIN MEDICATION GIVEN FOR PAIN IN ABDOMEN, FREQUENT CRAMPING. PT REMAINS OPIOID FREE SO FAR THIS SHIFT. MIDLINE INCISION REMAINS C/D/I WITH NO DRAINAGE NOTED ON DRESSING. ABDOMINAL BINDER IN PLACE, BRUISING ALL AROUND MIDLINE INCISION UNCHANGED. SOSA CATHETER DC'D. PT REMAINS DUT TO VOID AT THIS TIME. JANET DRAIN IN PLACE WITH INCREASING AMOUNTS OF SEROUSANGUINOUS FLUID SEEN. PT USESE CALL LIGHT AND MAKES NEEDS KNOWN. FAMILY AT BEDSIDE.
--- NOTE | 2022-10-08 18:04 | NUR ---
DR. MATOS CALLED AND UPDATED ON PT STATUS AND FREQUENCY OF DIARRHEA THIS SHIFT. ORDERS GIVE FOR AM LABS. ORDERS ENTERED, REPEAT BACK PERFORMED.
[2022-10-08 18:27] VITALS: BP 134/77
--- NOTE | 2022-10-08 18:30 | NUR ---
THIS RN TO ROOM TO CHECK ON PT. PT UP TO CHAIR. PT REPORTS 2/10 INTERMITTANT CRAMPING PAIN THAT IS WELL CONTROLLED. SYSTEM CONSULTANT AT BEDSIDE WORKING WITH PT. PT DENIES NAUSEA AND ASKS IF HE CAN DRINK MORE FLUIDS. PT ENCOURAGED TO DRINK WHAT HE FEELS READY FOR. NO ADDITONAL REQUESTS OR COMPLAINTS. CALL LIGHT WITHIN REACH. PT REMAINS UP TO CHAIR.
--- NOTE | 2022-10-08 19:31 | NUR ---
REPORT RECEIVED FROM DAY SHIFT RN. PT AMBULATING IN HALLWAY WITH SPOUSE. SAFETY PRECAUTIONS MAINTAINED. CALL LIGHT WITHIN REACH. WILL CONTINUE TO MONITOR.
[2022-10-08 20:57] VITALS: BP 126/75
--- NOTE | 2022-10-08 21:00 | NUR ---
Gave Pt fresh water with ice, and hot water in mug for tea. Pt noted phlegm in throat, and asked for releif suggestions. Notified RN. RN assumed care. Call light left in reach. No other needs expressed by Pt.
--- NOTE | 2022-10-08 21:30 | NUR ---
PT ASSESSED AND MEDICATIONS GIVEN. PT'S SPOUSE AT BEDSIDE. PT ABLE TO AMBULATE TO BATHROOM INDEPENDENTLY. VSS. JANET DRAIN INTACT. ABDOMINAL BINDER ON. IVF INFUSING PER ORDER. TORADOL GIVEN FOR PAIN RATING 3/10. SAFETY PRECAUTIONS MAINTAINED. ANN-MARIE LIGHT WITHIN REACH. WILL CONTINUE TO MONITOR.
[2022-10-09 06:03] VITALS: BP 128/89
--- NOTE | 2022-10-09 06:15 | NUR ---
PT RESTED WELL DURING THE SHIFT. MODERATE OUTPUT FROM JANET DRAIN. PT VOIDING. IVF INFUSING PER ORDER. TORADOL AND IV TYLENOL GIVEN FOR PAIN. NO NARCATICS GIVEN. PT ABLE TO AMBULATE TO THE BATHROOM AND IN HALLWAY WITHOUT ANY COMPLICATIONS. SAFETY PRECAUTIONS MAINTAINED. CALL LIGHT WITHIN REACH. WILL CONTINUE TO MONITOR.
--- NOTE | 2022-10-09 07:08 | NUR ---
REPORT RECEIVED FROM BALBINA RICHARDSON. PT UP TO CHAIR, SMILING AND WORKING ON PHONE. PT REPORTS 4/10 INTERMITTANT CRAMPING PAIN IN ABDOMEN. PT DENIES NEED FOR ADDITIONAL PAIN MEDICATION. PT REQUESTS ASSISTANCE WITH MOVING BELONGINGS AND ASK ADDITIONAL QUESTIONS ABOUT PLAN OF CARE. QUESTIONS ANSWERED. PT ENCOURAGED TO GET UP AND MOVE AROUND FREELY AND AMBULATE WHENEVER HE WOULD LIKE. PT STEADY ON FEET. DR. MATOS UPDATED. NEW ORDERS GIVEN. ORDERS ENTERED, REPEAT BACK PERFORMED. IV FLUIDS STOPPED, LEFT FORARM IV FLUSHED AND SALINE LOCKED, ALCOHOL CAP APPLIED. DIET ADVAED TO FULL LIQUID PT IS TOLERATING CLEARS WELL. NO ADDITIONAL REQUESTS OR COMPLAINTS. CALL LIGHT WITHIN REACH. BED RAILS UP.
--- NOTE | 2022-10-09 09:03 | NUR ---
RN ROUNDING: PT IS SITTING IN CHAIR. REPORTS NO NEEDS AT THIS TIME, HE HAS BEEN UP WALKING IN THE HALLS, HAD A FEW BITES OF BREAKFAST. STATED HIS WOULD BRING IN SOMETHING MORE APPEALING. PLUGED IN THE IV POLE DUE TO LOW BATTERY.
--- NOTE | 2022-10-09 09:29 | NUR ---
MORNING ASSESSMENT AND MEDICATION DUE. PT UP IN ROOM, GETTING READY TO AMBULATE. PT REPORTS 4/10 CRAMPING PAIN "I JUST BREATH THROUGH IT." PT DENIES NEED FOR PAIN MEDICAITON AT THIS TIME. PT DENIES NAUSEA. PT REPORTS HE WAS ABLE TO EAT CREAM OF WHEAT AND "A BIT OF SAUSAGE" FOR BREAFKAST, TOELRATING WELL. LUNG SOUNDS CLEAR. HEART TONES REGULAR. ABDOMEN REMAINS SOFT AND MILDY TENDER, TENDERNESS MOSTLY AROUND JANET INCERTION SITE. BOWEL TONES ACTIVE. MILD ABDOMINAL DISTENTION CONTINURES. MODERATE AMOUNTS OF SEROUSANGUINOUS DRAINAGE SEEN IN JANET BULB. MIDLINE INCISION C/D/I WITH NO DRAINAGE NOTED. BRUISING ARROUND MID LINE INCISION UNCHNAGED. IV ABX COMPLETE, BOTH IV'S FLUSHED ADN SALINE LOCKED, ALCOHOL CAPS APPLIED. PT UP TO AMBULATE IN GREEN. STEADY ON FEET, NO ASSISTANCE NEEDED. NO ADDITIONAL REQUESTS OR COMPLAINTS.
[2022-10-09 09:42] VITALS: BP 129/85
--- NOTE | 2022-10-09 10:39 | NUR ---
THIS RN TO ROOM TO CHECK ON PT. PT SITTING UP IN CHAIR, PLAYING VIDEO GAMES. PT REPORTS 3/10 ABDOMINAL PAIN THAT IS WELL CONTROLLED. PT DENIES NAUSEA AND REPORTS HE HAS ORDERED LUNCH. NO ADDITIONAL REQUESTS OR COMPLAINTS. CALL LIGHT WITHIN REACH. PT ENCOURAGED TO CALL ANYTIME.
--- NOTE | 2022-10-09 11:54 | NUR ---
THIS RN TO ROOM TO CHECK ON PT. PT REMAINS UP TO CHAIR, PLAYING WORD GAMES. LUNCH DELIVERED. PT REPORTS HE WAS UP FOR A WALK AND PAIN INCREASED "A LITTLE" UP TO 5/10. PT REQUESTS PAIN MEDICATION, SEE MAR FOR MEDICATION GIVEN. PT DENIES NASUEA. URINAL EMPITED OF 100ML CLEAR YELLOW URINE. ADDITIONAL SMALL SOFT GREEN/BROWN BOWEL MOVEMENT SEEN IN TOILET. PT CHEERFUL AND REPORTS THINGS ARE GOING "WELL." NO ADDITIONAL REQUESTS OR COMPLAINTS, CALL LIGHT WITHIN REACH.
--- NOTE | 2022-10-09 12:51 | NUR ---
THIS RN TO ROOM TO CHECK ON PT. PT UP IN ROOM. PT REPORTS PAIN REMAINS WELL CONTROLLED AT 3-08/08. PT REPORTS "I HAVE AN APPITITE TODAY, I DIDN'T DURING THE LAST SURGERY, BUT I DO NOW." PT WAS ABLE TO EAT 40% OF LUNCH, TOLERATING WELL. PT DENIES NAUSEA. PT REPORTS HE IS READY FOR A SHOWER. GRAIN SACKER TO BEDSIDE TO ASSIST PT WITH SUPPLIES FOR SHOWER. PT INDEPEDNAT IN SHOWER, NO ASSISTANCE NEEDED. CALL LIGHT WITHIN REACH.
[2022-10-09 13:32] VITALS: BP 116/77
--- NOTE | 2022-10-09 13:51 | NUR ---
PT FINISHED WITH SHOWER AND UP TO CHAIR. PT REPORTS SHOWER "FELT REALLY GOOD." PT REPORTS 0/10 PAIN WHEN CRAMPING IS NOT OCCURING AND 5/10 PAIN WITH CRAMPS. SEE MAR FOR MEDICATION GIVEN. LUNG SOUNDS CLEAR. HEART TONES REGULAR. ABDOMEN SOFT BUT TENDER WITH PALPATION AT TIMES. BRUSING AROUND MIDLINE INCISION UNCHANGED. MIDLINE INCISION C/D/I WITH NO DRAINAGE NOTED ON DRESSING. DRESSING TO JANET SITE NOTED TO BE WET AFTER SHOWER. DRIED WITH CLOTH, LEFT IN PLACE. SMALL AMOUNTS OF SEROUS ANGUINOUS DRAINAGE SEEN IN JANET BULB. PT EMPTING ON HIS OWN, AMOUNTS RECORDED. PT DENIES NASUEA. PT REPORTS BOWEL MOVMENTS ARE "BECOMING MORE NORMAL, MORE SOLID." ADDITIONAL SMALL BROWN SOFT BOWEL MOVEMENT SEEN IN TOILET. PT ALSO STATES HE FEELS HE HAS MORE CONTROL OVER BOWEL MOVEMENTS COMPARED TO YESTERDAY. BOWEL TONES ACTIVE. PT DENIES ADDITIONAL REQUSETS OR COMPLAINTS. PTS AT BEDSIDE. CALL LIGHT WITHIN REACH. BED RAILS UP.
--- NOTE | 2022-10-09 14:23 | NUR ---
THIS RN TO ROOM TO CHECK ON PT. PT UP TO CHAIR, VISITING WITH . PLACING DINNER ORDER. PT REPORTS APPITITE HAS RETURNED. PT REPORTS 1/10 ABDOMINAL PAIN AT THIS TIME THAT IS WELL CONTROLLED. PT DENIES NAUSEA. NO ADDITIONAL REQUESTS OR COMPLAINTS. CALL LIGHT WITHIN REACH. BED RAILS UP.
--- NOTE | 2022-10-09 15:15 | NUR ---
THIS RN TO ROOM TO CHECK ON PT. PT RESTING IN BED WITH EYES CLOSED. HEAD OF BED AT 30 DEGREES. RESPIRATIONS EVEN AND UNLABORED. PTS AT BEDSIDE. PT ALLOWED TO REST UNDESTURBED. BED RAILS UP. CALL LIGHT WITHIN REACH.
--- NOTE | 2022-10-09 15:26 | NUR ---
PT POST OP DAY 3 AFTER LAPAROTOMY FOR COMPLICATIONS AFTER APPENDECTOMY. PT ADVANCED TO REGULAR DIET THIS SHIFT AND TOELRATING WELL. IV FLUIDS DC'D MULITPLE BOWEL MOVEMENTS SEEN THIS SHIFT, BECOMING MORE SOLID. PT UP TO RESTROOM AND TO AMBULATE IN GREEN THIS SHIFT INDEPENDANTLY. PRN PAIN MEDICATION GIVEN FOR CRAMPING PAIN IN ABDOMEN. PT REMAINS OPIOID FREE. MIDLINE INCISION REMAINS C/D/I WITH NO DRAINAGE NOTED ON DRESSING. ABDOMINAL BINDER IN PLACE, BRUISING ALL AROUND MIDLINE INCISION UNCHANGED. SHOWER THIS SHIFT. JANET DRAIN IN PLACE WITH SMALL AMOUNTS OF SEROUSANGUINOUS FLUID SEEN. PT USESE CALL LIGHT AND MAKES NEEDS KNOWN. PTS AT BEDSIDE.
--- NOTE | 2022-10-09 17:22 | NUR ---
THIS RN TO ROOM TO CHECK ON PT. PT UP TO RESTROOM, INDEPENDANT AND STEADY ON FEET. PT REPORTS PAIN REMAINS WELL CONTROLLED AT 2/10 CURRENTLY IN ABDOMEN. DINNER DELIVERED. PT SITTING ON EDGE OF BED FOR DINNER. NO ADDITIONAL REQUESTS OR COMPLAINTS. CALL LIGHT WITHIN REACH. BED RAILS UP. PTS AT BEDSIDE.
[2022-10-09 17:32] VITALS: BP 117/80
--- NOTE | 2022-10-09 17:50 | NUR ---
DR MATOS CALLED AND UPDATED ON PT STATUS AND ASSESSMENT. ORDERS GIVEN TO REMOVE ABDOMINAL DRESSING LEAVING STERI STRIPS INTACT. DRESSING REMOVED BY BALBINA FERNANDEZ. PT UPDATED ON PLAN OF CARE. NO ADDITIONAL NEEDS AT THIS TIME. CALL LIGHT WITHIN REACH. BED RAILS UP.
--- NOTE | 2022-10-09 17:56 | NUR ---
PER VERBAL ORDER FROM DR MATOS, THIS RN WAS ASKED TO REMOVE THE JANET DRESSING AND SECURE JANET DRAIN WITH OPSITE. OPSITE, DRESSING REMOVED. POST OP DRESSING RESIDUE REMAINED ON SKIN. NO REDNESS, SWELLING, DRAINAGE, OR WARMTH FROM JANET SITE. SECURED JANET ON ABDOMEN WITH OPSITE. EDUCATED PATIENT ON DRESSING CHANGE. HE HAD NO QUESTIONS. TOLERATED WELL.
--- NOTE | 2022-10-09 18:11 | NUR ---
MIDLINE INCISION IS CLEAN, DRY, INTACT. NO REDNESS, SWELLING, DRAINAGE, OR WARMTH AROUND INCISION. COVERED WITH OPSITE.
--- NOTE | 2022-10-09 18:26 | NUR ---
THIS RN TO ROOM TO CHECK ON PT. PT UP TO CHAIR, EATING DINNER. PT REPORTS 3/10 INTERMITTANT CRAMPING PAIN IN ABDOMEN THAT IS WELL CONTROLLED. PT DENIES NEED FOR PAIN MEDICATION. PT TEARFUL AND EXPRESSES HOW GREATFUL HE IS FOR THE CARE HE HAS RECEIVED. PT DENIES NAUSEA. TOELRATING PO REGULAR DIET WELL. TEGADERM PLACED OVER MIDLINE INCISION BY BALBINA FERNANDEZ, REMOVED, STERI STRIPS REMAIN INTACT. JANET DRAIN SECURED WITH TEGADERM. EDGES OF MIDLINE INCISION WELL APROXIMATED. NO DRAINAGE NOTED. SMALL AMOUNT OF SEROUS ANGUINOUS FLUID SEEN IN JANET DRAIN BULB. PT DENIES ADDITIONAL REQUESTS OR COMPLAINTS. PT PREPPED ON PLAN FOR POSSIBLE DISCHARGE TOMORROW AND WHAT TO EXPECT WITH DISCHARGE. PT VERBALIZES UNDERSTANDING AND STATES HIS QUESTIONS HAVE BEEN ANSWERED. CALL LIGHT WITHIN REACH.
--- NOTE | 2022-10-09 19:30 | NUR ---
REPORT RECEIVED FROM DAY SHIFT RN. PT SITTING IN CHAIR. PT DENIED ANY COMPLAINTS OR CONCERNS. SAFETY PRECAUTIONS MAINTAINED. CALL LIGHT WITHIN REACH. WILL CONTINUE TO MONITOR.
[2022-10-09 20:28] VITALS: BP 130/83
--- NOTE | 2022-10-09 20:52 | NUR ---
PT ASSESSED AND MEDICATIONS GIVEN. PT SITTING IN CHAIR. PT'S FAMILY AT BEDSIDE. 1 IV REMOVED DUE TO PAIN AT SITE. OTHER IV INTACT. JANET DRAIN INTACT WITH 20ML OUTPUT NOTED. ABDOMINAL MIDLINE INTACT. VSS. SAFETY PRECAUTIONS MAINTAINED. CALL LIGHT WITHIN REACH. WILL CONTINUE TO MONITOR.
[2022-10-10 05:35] VITALS: BP 130/81
--- NOTE | 2022-10-10 05:55 | NUR ---
PT RESTED WELL THROUGHOUT THE SHIFT. PRN TYLENOL AND MOTRIN GIVEN FOR PAIN. VSS. PT VOIDING WELL. JANET DRAIN WITH ONLY 35ML OUT FOR SHIFT. MIDLINE INTACT. SAFETY PRECAUTIONS MAINTAINED. CALL LIGHT WITHIN REACH. WILL CONTINUE TO MONITOR.
--- NOTE | 2022-10-10 07:33 | NUR ---
Got report from shift boss nurse. Patient currently resting in bed. Denies any needs at this time, call light within reach.
--- NOTE | 2022-10-10 07:46 | NUR ---
Patient set up for breakfast. Patient had his first normal bowel movement for the first time in weeks per patient. Patient is getting his appetite back and ready to hopefully go home today. IV flushed and working well. Patient given fresh ice water. JANET drain checked and doing well. Patient currently has abdominal binder on. Call light within reach. Denies needing any pain medication at this time. Pain currenty 06/10.
[2022-10-10 08:51] VITALS: BP 127/79
--- NOTE | 2022-10-10 09:58 | NUR ---
Patient up and walking the halls on med surg. No complications, doing great. Pt given wash cloths, new gown and warm towel. He would like to do his morning cares. Denies needing help or nurse in room with him.
--- NOTE | 2022-10-10 10:15 | NUR ---
Spoke with Reji. He plans on dc to home today. He asks for detailed dc instructions and I let him know to discuss this with Dr. Benito. Pt denies other needs. We reviewed his fu appt with Doe Cassidy and this is on his dc summary instructions.
--- NOTE | 2022-10-10 11:14 | NUR ---
Patient sitting up in chair. JANET was drained, 50 out. Patient just waiting to be able to discharge home. He advised he feels like another bowel movement is in the process. Denies any other cares at this time.
[2022-10-10 13:31] VITALS: BP 117/78
--- NOTE | 2022-10-10 13:40 | NUR ---
Patient family is in room with him. Patient is ready to go home and hoping doctor will be around shortly. Denies any needs at this time besides stating "I am bored". He is going to walk in the hallways with his kids for something to do. Advised I have word seach, color stuff if ever intrested.
--- NOTE | 2022-10-10 14:41 | NUR ---
PT SITTING IN CHAIR-NGT DC'D AND PLANNING TO DC TODAY. GAVE ENCOURAGEMENT, SUPPORT AND PTS' BRYAN WAS PRESENT AND MENTIONED SHE WAS HAVING SOME DIFFICULTY. BOTH REQUESTED PRAYER, GAVE BLESSING. WILL FOLLOW
[2022-10-10] MEDS ORDERED: OXYCODONE-ACET1 EAC1 PO (15:43)
[2022-10-10] MEDS ORDERED: IBUPROFEN600 MG PO (15:43)
[2022-10-10] MEDS ORDERED: ACETAMINOPHEN500 MG PO ×2 (15:43→15:44)
[2022-10-10] MEDS ORDERED: MELATONIN1 MG PO (15:44)
--- NOTE | 2022-10-10 16:25 | NUR ---
PATIENT READY TO DISCHARGE. IV REMOVED, JANET DRAIN WAS REMOVED FROM .SHADOW OF DRAINAGE ON BANDAID. PATIENT DENIES ANY QUESTIONS OR CONCERNS. EDUCATION GONE OVER WITH PATIENT AND . PHARMACY HAS SEEN PATIENT. PATIENT HAS ALL BELONGINGS AND WILL BE TAKEN OUT VIA WHEELCHAIR.
--- NOTE | 2022-10-11 12:12 | PATH ---
[facility] [address], [place] [address] Signed SPECIMEN(S): A PROBABLE MECKELS DIVERTICULUM SPECIMEN(S): B SEGMENT OF ILEUM RESECTION SPECIMEN SOURCE: A. PROBABLE MECKELS DIVERTICULUM B. SEGMENT OF ILEUM RESECTION CLINICAL HISTORY: Peritonitis due to abscess. FINAL PATHOLOGIC DIAGNOSIS: A. Probable Meckel's diverticulum: - Portion of benign small bowel. - Acute and chronic serositis. B. Segment of ileum resection: - Segment of benign small bowel-type mucosa. - Acute and chronic serositis. - Focal prominent acute and chronic inflammation within soft tissues adjacent to small bowel. JVR:cox monett:C2NR MICROSCOPIC EXAMINATION: Histologic sections of all submitted blocks are examined by light microscopy. These findings, together with the gross examination, support the pathologic diagnosis. GROSS DESCRIPTION: A. The specimen, labeled and designated "Herman, A" and designated on the requisition "probable Meckel's diverticulum," is received in formalin and consists of a previously open portion of small bowel (3.5 x 2.5 x 1.5 cm) with one stapled margin (inked blue). The serosa is kramer-pink to red-brown and smooth and the mucosa is pink-kramer and unremarkable. Meal Miller sections are submitted cassette [id number]. B. The specimen, labeled and designated "Herman, B" and designated on the requisition "segment of ileum," is received in formalin and consists of a segment of small bowel (6 cm in length and ranging diameter from 2.5 to 3.5 cm) with attached fat extending up to 2.1 cm). One stapled margin is inked black and the opposite margin is inked blue. The serosa is red-brown and roughened with PATIENT NAME: DAVID MCFARLANE PATHOLOGY DATE OF : 79 REPORT #: [id number] PHYSICIAN: [facility] PATHOLOG[facility] PCP: RK GU PA-C REPORT IS CONFIDENTIAL AND NOT TO BE RELEASED WITHOUT AUTHORIZATION [facility] [address], [place] [address] Signed adherent red-brown clot-like material and white-kramer exudate. There is a third stapled area (inked green) located 0.3 cm from the blue inked margin. The specimen is opened to reveal kramer to green tinted mucosal folds with an edematous cut surface. No other masses or lesions are identified. Meal Miller sections are submitted in cassette B1-B3. AC (under the direct supervision of a pathologist) The Gross Description was prepared using a voice recognition system. The report was reviewed for accuracy; however, sound-alike word errors, addition and/or deletions may occur. If there is any question about this report, please contact Client Services. PERFORMING LABORATORY: The technical component was performed by [facility], [address] [place] [id number] (CLIA# [id number]). Professional interpretation was performed by [facility], [address] [place] [id number] (CLIA#: [id number]). Diagnostician: Edwin Caal MD Pathologist Electronically Signed 10/11/2022 Copies: ~ PATIENT NAME: DAVID MCFARLANE [facility]ANDO PATHOLOGY DATE OF : 79 REPORT #: [id number] PHYSICIAN: FELIPE PATHOLOGY PCP: RK GU PA-C REPORT IS CONFIDENTIAL AND NOT TO BE RELEASED WITHOUT AUTHORIZATION
--- NOTE | 2022-10-12 10:23 | DS ---
[facility] [address], [place] [address] Signed ADMISSION DATE: 10/06/2022 DISCHARGE DATE: 10/10/2022 REASON FOR ADMISSION: This 47-year-old white man underwent difficult appendectomy a week prior to current admission by Dr. Milton Salgado, which included open appendectomy for what sounds like very advanced chronic necrotic appendicitis. The appendix was described as "black." He was discharged home tolerating a liquid diet, was discharged with amoxicillin antibiotic. He presented to the emergency room on day of admission October 06, 2022, with complaints of lower abdominal pain, nausea, vomiting, and not doing well at all. On that basis, a CT scan was performed under the direction of Dr. Marlow. This showed 2 distinct fluid collections with rim enhancing features suggestive though not diagnostic of postoperative fluid collection with abscess or infected fluid. On that basis, he is readmitted at this time. PERTINENT PHYSICAL EXAMINATION: GENERAL: Showed a well-developed white man, who did not look systemically toxic, but was quite uncomfortable. CHEST: Clear. HEART: Regular. ABDOMEN: Showed kandy in place from an incision circumventing the umbilicus and extending inferiorly a bit. Ecchymosis of the abdominal soft tissues was noted, but no adrienne hematoma. There was no evidence of drainage from the wound proper. HOSPITAL COURSE: The patient was fluid resuscitated, given broad-spectrum antibiotic meropenem and taken to operation for drainage of pelvic fluid collection. Found were 2 separate fluid collections, one in the depths of the pelvis, the other in the root of the mesentery contiguous with the fibrinous peel of the cecum and terminal ileum. There was no adrienne hole within the cecum or the ileum, but marked inflammatory changes as might be expected. A low-grade small bowel obstruction was also noted with proximal dilated small bowel and marked inflammation of those bowel loops. Incidentally found upon running the bowel was a Meckel's diverticulum which was elongated and the size of the typical appendix proper. Mobilization of the Meckel's diverticulum away from the serosal surface did cause some deserosalization and on that basis the transected and removed Meckel's diverticulum was deemed inadequate for management and therefore segmental small bowel resection was undertaken corresponding to the Meckel's diverticulum origin with an end-to-end enteroenterostomy in a two-layer technique of interrupted 3-0 Vicryl and 3-0 silk suture. Electronically Signed By: MEREDITH MATOS MD 10/12/22 1023 PATIENT NAME: DAVID MCFARLANE DISCHARGE SUMMARY DATE OF : 79 REPORT #: [id number] PHYSICIAN: MEREDITH MATOS MD PCP: RK GU PA-C REPORT IS CONFIDENTIAL AND NOT TO BE RELEASED WITHOUT AUTHORIZATION [address] [address] Signed Copious cleansing of the abdominal cavity with saline solution was undertaken and drain placed in the depths of the pelvis. The patient was maintained with a nasogastric tube for at least 24 hours and did have postoperative TAP blocks placed. He promptly had return of bowel function including liquid bowel and flatus within 24 hours and the nasogastric tube was removed. He was advanced in his diet from liquid to full thick liquid and ultimately a regular diet, which he tolerated well. By day of discharge, the pelvic drain that had been placed was draining only very clear yellow serous fluid, which was able to be removed. His wound is healing well and kandy are out already at this point. FOLLOWUP PLANS: He is to return to see me in approximately 4 weeks. He is advised to lift no more than 20 pounds for the next 4 weeks. He will keep Steri-Strips on until they curl up on their own. He is encouraged to shower on a daily basis and to walk to avoid blood clots. He will continue with the amoxicillin that was prescribed as previous to this discharge, which should last at least 5 more days. DISCHARGE MEDICATIONS: 1. Motrin 600 mg p.o. q.6 hours as needed for pain, #30. 2. Percocet 5/325 two p.o. q.6 hours as needed for pain, #10. 3. Tylenol plain 500 mg 2 tablets p.o. q.6 hours as needed for pain, #60, refill 0. 4. Melatonin 1 mg tab 5 mg at bedtime as needed for sleep, #20, no refill. DISCHARGE DIAGNOSES: 1. Postoperative fluid collection in the pelvis and root of mesentery with associated small bowel obstruction. 2. Status post open appendectomy with gangrenous appendicitis (Dr. Milton Salgado). 3. Status post exploration of abdomen, drainage of pelvic fluid and intramesenteric fluid collection with placement of drain; additional segmental small bowel resection of Meckel's diverticulum. Meredith Matos MD Electronically Signed By: MEREDITH MATOS MD 10/12/22 1023 PATIENT NAME: DAVID MCFARLANE DISCHARGE SUMMARY DATE OF : 79 REPORT #: [id number] PHYSICIAN: MEREDITH MATOS MD PCP: RK GU PA-C REPORT IS CONFIDENTIAL AND NOT TO BE RELEASED WITHOUT AUTHORIZATION [facility] [address] [address] Signed /PAL /[id number] cc: MD Milton Lin MD Copies: LAINA MARLOW MD, ANDREW L MD ~ Electronically Signed By: MEREDITH MATOS MD 10/12/22 1023 PATIENT NAME: DAVID MCFARLANE DISCHARGE SUMMARY DATE OF : 79 REPORT #: [id number] PHYSICIAN: MEREDITH MATOS MD PCP: RK GU PA-C REPORT IS CONFIDENTIAL AND NOT TO BE RELEASED WITHOUT AUTHORIZATION
== END 2022-10-10 16:40 | disposition home or self-care (01) | DRG 857 ==
LOC: ED 01:37 → MS 04:07
PROVIDERS: ADMIT Surgery; ATTEND Surgery
PROC: 0DTB0ZZ Resection of Ileum, Open Approach (ICD-10-PCS; 2022-10-06)
PROC: 0DN80ZZ Release Small Intestine, Open Approach (ICD-10-PCS; 2022-10-06)
PROC: 0W9H0ZZ Drainage of Retroperitoneum, Open Approach (ICD-10-PCS; principal; 2022-10-06 17:00)
DX: K68.11 Postprocedural retroperitoneal abscess (principal); K56.50 Intestinal adhesions [bands], unspecified as to partial versus complete obstruction; Q43.0 Meckel's diverticulum (displaced) (hypertrophic); F10.90 Alcohol use, unspecified, uncomplicated; Z98.890 Other specified postprocedural states; Z79.891 Long term (current) use of opiate analgesic; Z88.5 Allergy status to narcotic agent; Z79.899 Other long term (current) drug therapy; Y83.6 Removal of other organ (partial) (total) as the cause of abnormal reaction of the patient, or of later complication, without mention of misadventure at the time of the procedure
CPT/HCPCS: 00840; 36415; 74018; 74177; 76942; 80048; 80053; 81003; 83690; 85025; 87070; 87075; 87205; A9270; J0131; J0780; J1100; J1170; J1885; J2001; J2185; J2270; J2405; J2704; J3010; J3480; J3490; J7060; J7120; J7121; Q9967

== ENCOUNTER 2024-02-18 15:28 | Emergency (ER) | payer BC ==
[~2024-02-18] VITALS: Ht 188 cm; Wt 90.4 kg
[~2024-02-18 15:28] MED LIST changes: +ACETAMINOPHEN500 MG PO; +HYDROMORPHONE HC4 MG PO; +IBUPROFEN600 MG PO; +MELATONIN1 MG PO; +OXYCODONE-ACET1 EAC1 PO
[2024-02-18 21:00] VITALS: BP 131/80
== END 2024-02-18 21:04 | disposition home or self-care (01) ==
LOC: ED 15:28
DX: S08.0XXA Avulsion of scalp, initial encounter (principal); Z88.5 Allergy status to narcotic agent; W20.8XXA Other cause of strike by thrown, projected or falling object, initial encounter
CPT/HCPCS: 70450; 99283-25